=== PATIENT | female | born 1950 | race Caucasian/White ===

== ENCOUNTER 2025-01-19 13:20 | Outpatient (AMB) | payer BC, SELFPAY ==
[2025-01-19 13:29] VITALS: BP 112/70; PULSE 72; O2SAT 99; BMI 23.4
--- NOTE | 2025-01-19 13:29 | A.OFFVIS_ITS ---
Vital Signs 01/19/25 13:29 Height 5 ft 3 in Weight 132 lb BMI 23.4 BP 112/70 Blood Pressure Location Rt brachial Position Sitting Pulse 72 Pulse Source Pulse Oximeter Pulse Oximetry (%) 99 Oxygen Delivery Method Room Air Intake Visit Reasons: ENP: Tremors Intake Note: patient referred by [facility] for tremors. Allergies pioglitazone Allergy (Unknown, Verified 01/19/25 13:32) Unknown acarbose Adverse Reaction (Severe, Verified 01/19/25 13:32) Diarrhea Medication List - Last Reconciled 01/19/25 by Nydia Rouse MD amlodipine mg PO atorvastatin 40 mg PO blood sugar diagnostic (FreeStyle Lite Strips) As directed insulin glargine (Lantus Solostar U-100 Insulin) units subcut insulin lispro (Humalog KwikPen (U-100) Insulin) subcut lancets (Accu-Chek Softclix Lancets) As directed lisinopril 40 mg PO meloxicam 15 mg PO metformin 1,000 mg PO pen needle, diabetic (BD Ultra-Fine Short Pen Needle) As directed HPI Comments Details: Patient was informed and verbally consented to the use of an ambient scribe for clinic note documentation during this visit. The patient is a 74-year-old Right handed female presenting with tremors that started over a year ago. The tremors are primarily in her hands and intermittently extend to her arms and shoulders, exacerbated by cold. These are postural and action tremors, affecting her ability to perform tasks involving fine motor skills like writing and eating certain foods. She reports no difficulty drinking fluids. Concurrent medical issues include lumbar spine osteoarthritis, diabetes mellitus with recent control details unspecified, and essential hypertension currently managed with two medications. Additionally, she underwent gallbladder removal and has experienced a wrist fracture in the past. There is no significant family history of tremors, and the patient does not report any head injuries. She experiences nocturnal numbness and tingling in her feet, a likely diabetes- related symptom. Her lumbar spine osteoarthritis results in pain but not frequent falls, and she uses a walker. [facility], LAT[facility] Medical History Coarse tremors Tremor of both hands Tobacco use disorder Overweight Iron deficiency anemia Increased frequency of urination Hyperlipidemia HTN (hypertension) Eczema Diverticulosis of colon Peripheral neuropathy Retinopathy Type 2 diabetes mellitus Carpal tunnel syndrome Chronic back pain Surgical History Hx of cholecystectomy Hx of colonoscopy H/O esophagogastroduodenoscopy Family History Mother Lung cancer Father CAD (coronary artery disease) Social History Alcohol intake: never Patient Tobacco Use Status: Current everyday Tobacco user Review of Systems Const Details: - Musculoskeletal: Reports difficulties with writing due to tremors. - Neurological: Denies head or leg tremors; reports numbness and tingling in feet at night. - Endocrine: Denies recent symptoms; long-established diabetes. - Musculoskeletal: Reports arthritis in lumbar spine. Physical Exam Vital Signs: Last Vital Signs Pulse 72 01/19/25 13:29 BP 112/70 01/19/25 13:29 Pulse Ox 99 01/19/25 13:29 Oxygen Delivery Method Room Air 01/19/25 13:29 BMI result Body Mass Index 23.4 Const General: cooperative, comfortable and no acute distress Nutritional Appearance: average body habitus Orientation/consciousness: patient oriented x3 Eyes Pupils: Equal, round and reactive pupils present Neuro Other: voice tremors Mild postural and rest tremors juventino UE Moderate action tremors trouble writing Gait - with walker slow stooped antalgic FFm and foot taps mildly decreased General: patient oriented x3, tone normal, moves all extremities and no focal motor deficits Cranial nerves: Yes Facial sensation intact/muscles of mastication intact, Yes Equal, round and reactive pupils present, Yes Bilaterally intact EOM present, Yes Nystagmus not present, Yes Normal facial strength present and Yes Midline tongue present Motor exam (neuro): 5/5 motor strength present throughout and Normal motor muscle tone present throughout Deep tendon reflexes (DTR's): Right triceps reflex intensity grade: 2+, Left triceps reflex intensity grade: 2+, Rt Biceps (C5, C6): 2+, Left biceps reflex intensity grade: 2+, Right brachioradialis reflex intensity grade: 2+, Left brachioradialis reflex intensity grade: 2+, Right patellar reflex intensity grade: 2+ and Left patellar reflex intensity grade: 2+ Coordination: [id number] test normal Psych Other: - Appearance: The patient appears engaged and follows commands properly. - Mood and Affect: Shows no evidence of mood disturbances. Assessment & Plan Assessment & Plan (1) Coarse tremors: Comment: senile tremors Code(s): G25.2 - Other specified forms of tremor Category: Medical Plan - Start propranolol 10 mg twice daily with meals; use plenty of fluids. - Participate in occupational therapy; follow-up on discussing tools for writing. - Monitor symptoms and report any new dizziness. - Ensure continued management of diabetes and hypertension. - Follow up in four months or sooner if symptoms worsen. No evidence of Parkinsons on todays visit Orders: Orders OT Evaluation and Treatment Today G25.2 - Other specified forms of tremor Medications: New propranolol 10 mg PO BID 60 tabs 6RF Coding Level of Care Code New Pt Level 4 (05716) Diagnoses Coarse tremors G25.2
--- OUTSIDE RECORDS SUMMARY | 2025-01-19 16:11 | XMS_ITS | Data Portability ---
Author Organization [place] [facility], CARLOS ROMAN MD Address [address] [place] [id number] Care Team Providers Care Muffler Mechanic Name Role Phone MD LUCIAN, SHIRAZ Primary Care Provider [phone] MD EPSTEIN LEE Referring Provider [phone] Assessment Encounter Date Assessment Date Assessment LastModified by Organization Details LastModified Time 10/22/2021 10/22/2021 Impression and plan: 1. Probable essential tremors. Currently mild. Her handwriting remains legible. She has not been spilling food or drink.. Hold off on treatment. Doubt Parkinson's. Patient given reassurance. 2. History of diabetic peripheral neuropathy. 3. Return to the office in one year to reassess. jancheta Not available 10/22/2021 14:05:58 Plan of Treatment Reminders Order Date Submit Date Provider Last Modified By Organization Details Last Modified Time Details Appointments None record ed. Lab None record ed. Referral None record ed. Procedures None record ed. Surgeries None record ed. Imaging None record ed. Medication Orders None record ed. Patient TargetsNo targets recorded. Patient Instructions Encounter Date Encounter Id Patient Instructions Last Modified By Organization Details Last Modified Time 10/22/2021 [id number] Plan of care coordinated with patient and patient's at the end of visit. The patient and patient's voiced understanding of the above counseling and instructions. Patient and patient's agrees to treatment plan established at this visit. jancheta Not available 10/22/2021 14:06:05 Reason for Referral None Reported. Procedures Surgical History Date Name Laterality Status Provider Name and Address Organization Details Recorded Time Tonsillectomy completed Jose DIEZ - [facility] 10/22/2021 13:44:57 Cataract Surgery completed Jose DIEZ - [facility] 10/22/2021 13:45:03 Colonoscopy completed Jose DIEZ - [facility] 10/22/2021 13:45:09 Imaging Results None recorded. Procedure Notes None recorded. Medical Equipment None Reported. Allergies No known drug allergies Medications Name Sig Start Date Stop Date Status Note LastModified by Organization Details LastModified Time meclizine 12.5 mg tablet active Not Available Not Available No t Available aspirin 81 mg tablet,delayed release Take 1 tablet every day by oral route. active Not Available Not Available No t Available atorvastatin active Not Available Not Available Not Available lisinopril active Not Available Not Av ailable Not Available Slow Fe active Not Available Not Avail able Not Available metformin active Not Available Not Nora ilable Not Available lovastatin active Not Available Not Av ailable Not Available Lantus U-100 Insulin active Not Available Not Available Not Available Vitals None Recorded Social History Question Answer Notes LastModified by Organizat ion Details LastModified Time Tobacco Smoking Status Current Every Day Smoker Jose Woodward [facility], [place] - [facility] 10/22/2021 13:44:47 What Is Your Level Of Alcohol Consumption? None Information not available 10/22/2021 Are You Blind Or Do You Have Difficulty Seeing? No Information not available 10/22/2021 How Much Tobacco Do You Smoke? 1 PPD Information not available 10/22/2021 Do You Use Any Illicit Or Recreational Drugs? No Information not available 10/22/2021 How Many Years Have You Smoked Tobacco? 40 Information not available 10/22/2021 Do You Or Have You Ever Used Any Other Forms Of Tobacco Or Nicotine? No Information not available 10/22/2021 Sex: Unknown Functional Status None recorded. Mental Status None recorded. Family History Relationship Description Onset Age of this Age Resolved Age Notes LastModified by Organization Details LastModified Time Father Heart disease jwicks Not available 2020 13:43:54 Father Diabetes mellitus jancheta Not available 2020 14:07:23 Mother Malignant tumor of lung jwicks Not available 2020 13:44:04 Brother Human immunodefici ency virus infection CANCER jwicks Not available 2020 13:44:17 Brother Malignant tumor of lung jancheta Not available 2020 14:07:54 Brother Viral hepatitis C jancheta Not available 05/2021 14:08:19 Brother Hemophilia jancheta Not availa ble 10/22/2021 14:08:28 Medical History Condition Response Cataracts Y Gynecological HistoryNo gynecological history recorded. Obstetrics History GPAL:G 0 P 0 0 0 0 Past Encounters Encounter ID Performer Location Encounter Start Date Encounter Closed Date Diagnosis/Indication Diagnosis SNOMED-CT Code Diagnosis ICD10 Code Diagnosis Note [id number] Carlos Roman MD [facility] [address] [place] [address],[place] [phone] 10/22/2021 13:24:54 10/22/2021 14:02:08 Essential tremor 672845688 G25.0 Diabetic p eripheral neuropathy 552929822 E11.40 Health Concerns Section Related Observation LastModified by Organization Detai ls LastModified Time None Recorded Concern Status LastModified by Organization Details LastModified Time None Recorded Advance Directives Directive None Recorded Payers Encounter Date Sequence Insurance Name Policy Number Policy Espino Covered Member ID Espino Member ID Guarantor Name 10/22/2021 1 [facility] (MEDICARE REPLACEMENT/A DVANTAGE - PPO) [id number] Annette Marcos [id number] Annette Marcos Notes Date Note Type Note Provider Name and Address Organization Details Recorded Time 10/22/2021 text/html The patient is a 70-year-old female who has been complaining of tremors involving her hands bilaterally for the past couple of years. She feels it as affecting her handwriting. Her handwriting is still legible. She denies spilling food or drink during meals. She denies any shuffling of her feet. She denies any drooling. She denies any trouble swallowing. She denies any history of thyroid disease. She denies any family history of tremors. The patient is wondering whether she has Parkinson's. She does have a history of peripheral neuropathy and diabetes. Neurological consultation is requested by Dr. Epstein for further evaluation of resting tremors. Carlos Roman MD [address] [facility],[address] [place], [address], [place] - [facility] 10/22/2021 14:12:48 OBGyn Episode No OBEpisode recorded.
--- OUTSIDE RECORDS SUMMARY | 2025-01-19 16:11 | XMS_ITS | Continuity of Care Document ---
Author Organization [facility] Address [address] [place] [address]- Care Team Providers Care Spa Manager/Esthetician Name Role Phone Bronwyn Camejo Primary Care P isidoro [place] [facility] [place] 11[place]28[place]24 - 12/28/24 [facility] [address] [place] [id number] Encounter Type: Triage Allergies, Adverse Reactions, Alerts Substance Criticality Severity Reaction Reaction Severity Status acarbose Diarrhea Active pioglitazone Active Immunizations Given and Recorded Vaccine Date Status Refusal Reason influenza virus vaccine, inactivated 09/19/24 Az rded influenza virus vaccine, inactivated 10/03/23 Az rded influenza virus vaccine, inactivated 1 08/27/16 Gi latosha influenza virus vaccine, inactivated 09/13/14 Give n SARS-CoV-2(COVID-19)mRNA-LNP vac([id number]) 09/19/24 Recorded SARS-CoV-2(COVID-19)mRNA-LNP vac([id number]) 09/10/23 Recorded Influenza Virus Vaccine (oldterm) 08/28/19 Recorde d pneumococcal 23-valent vaccine 2 12/23/16 Given pneumococcal 13-valent vaccine 3, 4 10/04/15 Given Zostavax (oldterm) 5 01/21/15 Recorded tetanus/diphtheria/pertussis, acel(Tdap) 01/28/08 Given Pneumococcal Vaccine (oldterm) 11/21/97 Given diphtheria-tetanus toxoids (DT) 11/21/97 Given 1Result Comment: Dr grey Vanegas 2Admin Note: [facility] 3Result Comment: Dr grey Vanegas 4Admin Note: [facility] 5Location History: [place] / Pharmacy Medications acetaminophen 325 mg oral tablet 650 mg, By Mouth, Every 6 hours, Refills 0, Maintenance, 10/07/24 11:22:00 AM EST, Partial fill upon patient request if the prescription is for a schedule II opioid drug. Start Date: 10/07/24 Status: Ordered Repeat number: 1 amLODIPine 10 mg oral tablet 1 tablet, By Mouth, Daily at supper, # 90 tablet, 1 Refills, Maintenance, 07/01/24 11:34:00 AM EDT, [facility] #[id number], 161.4, cm, 07/01/24 10:50:00 EDT, Height Start Date: 07/01/24 Status: Ordered Quantity: 90.0 Unit: tablet Repeat number: 2 atorvastatin 40 mg oral tablet 1 tablet, By Mouth, Daily, # 90 tablet, 1 Refills, Maintenance, 11/23/24 9:55:00 AM EST, [id number], 157, cm, 10/12/24 13:33:00 EST, Height, 64, kg, 10/03/24 12:46:00 EST, Dry Weight Start Date: 11/23/24 Status: Ordered Quantity: 90.0 Unit: tablet Repeat number: 1 Dexcom CGM Dexcom CGM, See Instructions, # 1 each, Refills 0, Tot. Refills 0, Maintenance, Dexcom CGM, :53:00 AM EDT, Supply, 161.4, cm, 04/21/24 10:51:00 EDT, Height Start Date: 05/05/24 Status: Ordered Quantity: 1.0 Unit: each Repeat number: 1 Freestyle Lancets See Instructions, # 100 pack/packet, Refills 5, Tot. Refills 5, Maintenance, Used to test BS TID DX: E11.9, 05/26/24 12:22:00 PM EDT, Supply, 161.4, cm, 04/21/24 10:51:00 EDT, Height Start Date: 05/26/24 Status: Ordered Quantity: 100.0 Unit: pack/packet Repeat number: 6 Freestyle Lite Lancets See Instructions, # 600 each, Refills 2, Tot. Refills 2, Maintenance, DX: E11.9 test blood sugars 3times daily, 12/15/23 9:30:00 AM EST, Supply, 161.4, cm, 06/19/23 9:52:00 EDT, Height Start Date: 12/15/23 Status: Ordered Quantity: 600.0 Unit: each Repeat number: 3 Freestyle Lite Monitor See Instructions, # 1 each, Maintenance, Used to test BS TID E11.9, 05/26/24 12:25:00 PM EDT, Supply, 161.4, cm, 04/21/24 10:51:00 EDT, Height Start Date: 05/26/24 Status: Ordered Quantity: 1.0 Unit: each Repeat number: 1 Freestyle Lite Test Strips See Instructions, # 200 each, Refills 5, Tot. Refills 5, Maintenance, Used to test BS TID use as directed for Type 1 Diabetes Mellitus, 05/26/24 12:22:00 PM EDT, Supply, 161.4, cm, 04/21/24 10:51:00 EDT, Height Start Date: 05/26/24 Stop Date: 11/22/24 Status: Ordered Quantity: 200.0 Unit: each Repeat number: 6 Freestyle Lite Test Strips Freestyle Lite Test Strips, See Instructions, # 200 each, Refills 11, Tot. Refills 11, Maintenance,Test blood sugars three times daily, 04/20/24 9:44:00 AM EDT, Supply, 161.4, cm, 03/17/24 10:45:00 EDT, Height Start Date: 04/20/24 Status: Ordered Quantity: 200.0 Unit: each Repeat number: 12 Indication: Type 2 diabetes mellitus without complications Golytely - oral powder for reconstitution 240 mL, By Mouth, Every 10 minutes, see prep instructions, # 1 each, 0 Refills, Maintenance, 07/07/24 12:13:00 PM EDT, REC Powder, [facility] #[id number], Partial fill upon patient request if the prescription is for a schedule II opioid drug., 240 mL By Mouth Every 10 minutes,Instr:see prep instructions, 161.4, cm, 06/06/24 11:21:00 EDT, Height Start Date: 07/07/24 Status: Ordered Quantity: 1.0 Unit: each Repeat number: 1 Insulin Lispro KwikPen 100 units/mL injectable solution 4-10 units, Subcutaneous Injection, 3 times a day before meals, << Sliding Scale Comments >> 100 - 149 4 units Call if less than 70 150 - 199 5 units 200 - 249 6 units 250 - 299 7 units 300 - 349 8 units 350 - 399 9 units 400 - 449 10 units Call if greater than 400 << Sliding Scale Comments >>, # 15 mL, 0 Refills, Maintenance, 10/10/24 10:00:00 AM EST, [id number], Partial fill upon patient request if the prescription is for a schedule II opioid drug., 157, cm, 10/09/24 15:17:00 EST, Height, 64, kg, 10/03/24 12:46:00 EST, Dry Weight Start Date: 10/10/24 Status: Ordered Quantity: 15.0 Unit: mL Repeat number: 1 Latrell Solostar Pen 100 units/mL subcutaneous solution = 16 units, Subcutaneous Injection, Daily, # 15 mL, 0 Refills, Maintenance, 10/10/24 10:00:00 AM EST, Solution, [facility] #[id number], Partial fill upon patient request if the prescription is for a schedule II opioid drug., 157, cm, 10/09/24 15:17:00 EST, Height, 64, kg, 10/03/24 12:46:00 EST, Dry Weight Start Date: 10/10/24 Status: Ordered Quantity: 15.0 Unit: mL Repeat number: 1 lisinopril 40 mg oral tablet 1 tablet = 40 mg, By Mouth, Daily at supper, # 90 tablet, 1 Refills, Maintenance, 07/01/24 11:34:00 AM EDT, Tablet, [facility] #[id number], Partial fill upon patient request if the prescription is for a schedule II opioid drug., 161.4, cm, 07/01/24 10:50:00 EDT, Height Start Date: 07/01/24 Status: Ordered Quantity: 90.0 Unit: tablet Repeat number: 2 meloxicam 15 mg oral tablet 1 tablet, By Mouth, Daily, # 90 tablet, 0 Refills, Maintenance, 07/28/24 6:28:00 AM EDT, [id number], 161.4, cm, 07/01/24 10:50:00 EDT, Height Start Date: 07/28/24 Status: Ordered Quantity: 90.0 Unit: tablet Repeat number: 1 metFORMIN 1000 mg oral tablet 1 tablet, By Mouth, 2 times a day, # 180 tablet, 1 Refills, Maintenance, 08/01/24 2:07:00 PM EDT, [id number], 161.4, cm, 07/01/24 10:50:00 EDT, Height Start Date: 08/01/24 Status: Ordered Quantity: 180.0 Unit: tablet Repeat number: 1 Pen Mims, 31 G x 8 mm BD Ultra Fine III See Instructions, # 300 each, Refills 2, Tot. Refills 2, Maintenance, use as once daily for Type 2 Diabetes Mellitus, 06/11/24 4:04:00 PM EDT, Supply, 161.4, cm, 06/19/23 9:52:00 EDT, Height Start Date: 06/11/24 Stop Date: 03/08/25 Status: Ordered Quantity: 300.0 Unit: each Repeat number: 3 Indication: Type 2 diabetes mellitus without complications Pen Mims, 31 G x 8 mm BD Ultra Fine III See Instructions, # 300 each, Refills 2, Tot. Refills 2, Maintenance, use as once daily for Type 2 Diabetes Mellitus, 10/10/24 9:58:00 AM EST, Supply, 157, cm, 10/09/24 15:17:00 EST, Height, 64, kg, 10/03/24 12:46:00 EST, Dry Weight Start Date: 10/10/24 Stop Date: 07/07/25 Status: Ordered Quantity: 300.0 Unit: each Repeat number: 3 psyllium 2.4 g/3.7 g oral powder for reconstitution = 2.4 Gm, By Mouth, Daily, PRN as needed for constipation, dissolve in 8 oz of fluid, # 30 pack/packet, 0 Refills, Maintenance, 06/06/24 12:07:00 PM EDT, REC Powder, [facility] #[id number], Partial fill upon patient request if the prescription is for a schedule II opioid drug., 161.4, cm, 06/06/24 11:21:00 EDT, Height Start Date: 06/06/24 Status: Ordered Quantity: 30.0 Unit: pack/packet Repeat number: 1 Problem List Condition Confirmation Course Effective Dates Status H ealth Status Informant Back pain Confirmed Active Carpal Tunnel Syndrome Confirmed Active Diabetic peripheral neuropathy Confirmed Active Diverticulosis of colon Confirmed 12/29/07 Active Eczema Confirmed Active Tremor of both hands Confirmed Active HTN (hypertension) Confirmed Active Hyperlipidemia NOS Confirmed 09/07/08 Active Increased frequency of urination Confirmed Active Iron deficiency anemia Confirmed 08/09/17 Active Diabetic Background Retinopathy 362.01 Confirmed Active Overweight Confirmed Active TOBACCO USE DISORDER Confirmed 03/19/09 Active Diabetes mellitus type II, uncontrolled Confirmed 02/1987 Active Social History Social History Type Response Smoking Status 10 or more cigarette s (1/2 pack or more)/day in last 30 days; Interested in cessation: No; Tobacco use times per day: 40 years; entered on: 06/19/23 Sex Sex Representation Female (finding) Patient Care team information Care Team Personnel Name: Leanne Ybarra RN Position: S RN Member Role: Primary Care Nurse Name: Efrain Don RN Position: S RN Member Role: Primary Care Nurse Name: Jazmyn Jose RN Position: S RN Member Role: Primary Care Nurse Name: Delilah Pérez RN Position: S RN Member Role: Primary Care Nurse Name: Ewa Cheney RN Position: S RN Member Role: Primary Care Nurse Name: Bronwyn Camejo Position: [facility] Associate Professional Member Role: PCP Address: [address] [place] [address]. [address] [place], [place] [address] Telecom: Name: Es Hernadnez RN Position: S RN Member Role: Primary Care Nurse Name: Amelie Lamar RN Position: S RN Member Role: Primary Care Nurse Name: Luci Kumari RN Position: S RN Member Role: Primary Care Nurse Name: Lili Mace RN Position: S RN Member Role: Primary Care Nurse Care Team Related Persons Name: NIEVESRANDA Insurance Providers Guarantor name: RANJITH PICKETT [facility] Information #: 1 Payer: NAIMA Member Number: NA Policy Number: NA Group Number: NA
--- OUTSIDE RECORDS SUMMARY | 2025-01-19 16:11 | XMS_ITS | Continuity of Care Document ---
Author Organization [facility] Address [address] [place] [address] [address] [place] [address]- Care Team Providers Care Cookie Mixer Helper Name Role Phone Nita CHUNG, Bronwyn Rios Primary Care P isidoro En[place] [facility] [place] Date(s): 11/23/24 - 12/23/[address] [place] [address]- Attending Physician: Admtr, Ar8 Admitting Physician: Admtr, Ar8 Referring Physician: Admtr, Ar8 Encounter Type: Triage Allergies, Adverse Reactions, Alerts Substance Criticality Severity Reaction Reaction Severity Status acarbose Diarrhea Active pioglitazone Active Immunizations Given and Recorded Vaccine Date Status Refusal Reason influenza virus vaccine, inactivated 09/19/24 Az rded influenza virus vaccine, inactivated 10/03/23 Az rded influenza virus vaccine, inactivated 1 08/27/16 Gi latosha influenza virus vaccine, inactivated 09/13/14 Give n SARS-CoV-2(COVID-19)mRNA-LNP vac([id number]) 09/19/24 Recorded SARS-CoV-2(COVID-19)mRNA-LNP vac([id number]) 09/10/23 Recorded Influenza Virus Vaccine (oldterm) 08/28/19 Recorde d pneumococcal 23-valent vaccine 2 12/23/16 Given pneumococcal 13-valent vaccine 3, 4 10/04/15 Given Zostavax (oldterm) 5 01/21/15 Recorded tetanus/diphtheria/pertussis, acel(Tdap) 01/28/08 Given Pneumococcal Vaccine (oldterm) 11/21/97 Given diphtheria-tetanus toxoids (DT) 11/21/97 Given 1Result Comment: Dr grey Vanegas 2Admin Note: [facility] 3Result Comment: Dr grey Vanegas 4Admin Note: [facility] 5Location History: [place] / Pharmacy Medications acetaminophen [...] 1 Refills, Maintenance, 07/01/24 11:34:00 AM EDT, [facility]/pharmacy #[id number], 161.4, cm, 07/01/24 10:50:00 EDT, Height Start Date: 07/01/24 Status: Ordered Quantity: 90.0 Unit: tablet Repeat number: 2 atorvastatin 40 mg oral tablet 1 tablet, By Mouth, Daily, # 90 tablet, 1 Refills, Maintenance, 11/23/24 9:55:00 AM EST, [facility], 157, cm, 10/12/24 13:33:00 EST, Height, 64, [...] Maintenance, 07/07/24 12:13:00 PM EDT, REC Powder, [facility]/pharmacy #[id number], Partial fill upon patient request if the [...] Quantity: 15.0 Unit: mL Repeat number: 1 Lantus Solostar Pen 100 units/mL subcutaneous solution = 16 units, Subcutaneous Injection, Daily, # 15 mL, 0 Refills, Maintenance, 10/10/24 10:00:00 AM EST, Solution, [id number], Partial fill upon patient request [...] Refills, Maintenance, 07/01/24 11:34:00 AM EDT, Tablet, [id number], Partial fill upon patient request if the prescription is for a schedule II opioid drug., 161.4, cm, 07/01/24 10:50:00 EDT, Height Start Date: 07/01/24 Status: Ordered Quantity: 90.0 Unit: tablet Repeat number: 2 meloxicam 15 mg oral tablet 1 tablet, By Mouth, Daily, # 90 tablet, 0 Refills, Maintenance, 07/28/24 6:28:00 AM EDT, [facility], 161.4, cm, 07/01/24 10:50:00 EDT, Height Start Date: 07/28/24 Status: Ordered Quantity: 90.0 Unit: tablet Repeat number: 1 metFORMIN 1000 mg oral tablet 1 tablet, By Mouth, 2 times a day, # 180 tablet, 1 Refills, Maintenance, 08/01/24 2:07:00 PM EDT, [facility], 161.4, cm, 07/01/24 10:50:00 EDT, Height Start Date: 08/01/24 Status: Ordered Quantity: 180.0 Unit: tablet Repeat number: 1 Pen [place], 31 G x 8 mm BD Ultra Fine III See Instructions, # 300 each, Refills 2, Tot. Refills 2, Maintenance, use as once daily for Type 2 Diabetes Mellitus, 06/11/24 4:04:00 PM EDT, Supply, 161.4, cm, 06/19/23 9:52:00 EDT, Height Start Date: 06/11/24 Stop Date: 03/08/25 Status: Ordered Quantity: 300.0 Unit: each Repeat number: 3 Indication: Type 2 diabetes mellitus without complications Pen [place], 31 G x 8 mm BD Ultra [...] Maintenance, 06/06/24 12:07:00 PM EDT, REC Powder, [facility]/pharmacy #[id number], Partial fill upon patient request if the [...] Team Personnel Name: Leanne Ybarra RN Position: [facility] RN Member Role: Primary Care Nurse Name: Efrain Don RN Position: [facility] RN Member Role: Primary Care Nurse Name: Jazmyn Jose RN Position: S RN Member Role: Primary Care Nurse Name: Delilah Pérez RN Position: [facility] RN Member Role: Primary Care Nurse Name: Ewa Cheney RN Position: [facility] RN Member Role: Primary Care Nurse Name: Bronwyn Camejo Position: [facility] Associate Professional Member Role: PCP Address: [address] [place] [address]. [address] [place] [address]- Telecom: Name: Es Hernandez RN Position: S RN Member Role: Primary Care Nurse Name: Amelie Lamar RN Position: [facility] RN Member Role: Primary Care Nurse Name: Luci Kumari RN Position: [facility] RN Member Role: Primary Care Nurse Name: Lili Mace RN Position: [facility] RN Member Role: Primary Care Nurse Care Team Related Persons Name: RANDA PICKETT Insurance Providers Guarantor name: [facility] Information #: 1 Payer: NA Member Number: NA Policy Number: NA Group Number: NA
--- OUTSIDE RECORDS SUMMARY | 2025-01-19 16:11 | XMS_ITS | Continuity of Care Document ---
Author Organization [facility] Adult Address [address] [place] [address]- Care Team Providers Care Storekeeper Engineering Name Role Phone Bronwyn Camejo Primary Care [facility]oro [id number] Date([facility] 12/12/24 - 01/11/25 [facility] [address] [place] [id number] Encounter Type: Triage Allergies, Adverse Reactions, Alerts Substance Criticality Severity Reaction Reaction Severity Status acarbose Diarrhea Active pioglitazone Active Immunizations Given and Recorded Vaccine Date Status Refusal Reason influenza virus vaccine, inactivated 09/19/24 Az rded influenza virus vaccine, inactivated 10/03/23 Az rded influenza virus vaccine, inactivated 1 08/27/16 Gi latosha influenza virus vaccine, inactivated 09/13/14 Give n SARS-CoV-2(COVID-19)mRNA-LNP vac([id number]) 09/19/24 Recorded SARS-CoV-2(COVID-19)mRNA-LNP vac([id number]) 09/10/23 Recorded Influenza Virus Vaccine (oldterm) 08/28/19 Recorde d pneumococcal 23-valent vaccine 2 12/23/16 Given pneumococcal 13-valent vaccine 3, 4 10/04/15 Given Zostavax (oldterm) 5 01/21/15 Recorded tetanus/diphtheria/pertussis, acel(Tdap) 01/28/08 Given Pneumococcal Vaccine (oldterm) 11/21/97 Given diphtheria-tetanus toxoids (DT) 11/21/97 Given 1Result Comment: Dr grey Vanegas 2Admin Note: [facility] 3Result Comment: Dr grey Vanegas 4Admin Note: [facility] 5Location History: [place] / Pharmacy Medications acetaminophen 325 mg oral [...] 1 Refills, Maintenance, 07/01/24 11:34:00 AM EDT, [facility]/pharmacy #0859, 161.4, cm, 07/01/24 10:50:00 EDT, Height Start Date: 07/01/24 Status: Ordered Quantity: 90.0 Unit: tablet Repeat number: 2 atorvastatin 40 mg oral tablet 1 tablet, By Mouth, Daily, # 90 tablet, 1 Refills, Maintenance, 11/23/24 9:55:00 AM EST, [facility], 157, cm, 10/12/24 13:33:00 EST, Height, 64, [...] Maintenance, 07/07/24 12:13:00 PM EDT, REC Powder, [facility]/pharmacy #[id number], Partial fill upon patient request if the [...] 0 Refills, Maintenance, 10/10/24 10:00:00 AM EST, [facility]/pharmacy #0859, Partial fill upon patient request if the prescription is for a schedule II opioid drug., 157, cm, 10/09/24 15:17:00 EST, Height, 64, kg, 10/03/24 12:46:00 EST, Dry Weight Start Date: 10/10/24 Status: Ordered Quantity: 15.0 Unit: mL Repeat number: 1 Lant Solostar Pen 100 units/mL subcutaneous solution = 16 units, Subcutaneous Injection, Daily, # 15 mL, 0 Refills, Maintenance, 10/10/24 10:00:00 AM EST, Solution, [facility]/pharmacy #0859, Partial fill upon patient request if [...] Refills, Maintenance, 07/01/24 11:34:00 AM EDT, Tablet, [facility]/pharmacy #0859, Partial fill upon patient request if the prescription is for a schedule II opioid drug., 161.4, cm, 07/01/24 10:50:00 EDT, Height Start Date: 07/01/24 Status: Ordered Quantity: 90.0 Unit: tablet Repeat number: 2 meloxicam 15 mg oral tablet 1 tablet, By Mouth, Daily, # 90 tablet, 0 Refills, Maintenance, 07/28/24 6:28:00 AM EDT, [facility], 161.4, cm, 07/01/24 10:50:00 EDT, Height Start Date: 07/28/24 Status: Ordered Quantity: 90.0 Unit: tablet Repeat number: 1 metFORMIN 1000 mg oral tablet 1 tablet, By Mouth, 2 times a day, # 180 tablet, 1 Refills, Maintenance, 08/01/24 2:07:00 PM EDT, [facility], 161.4, cm, 07/01/24 10:50:00 EDT, Height Start Date: 08/01/24 Status: Ordered Quantity: 180.0 Unit: tablet Repeat number: 1 Pen [place], 31 G x 8 mm BD Ultra Fine III See Instructions, # 300 each, Refills 2, Tot. Refills 2, Maintenance, use as once daily for Type 2 Diabetes Mellitus, 06/11/24 4:04:00 PM EDT, Supply, 161.4, cm, 06/19/23 9:52:00 EDT, Height Start Date: 06/11/24 Stop Date: 03/08/25 Status: Ordered Quantity: 300.0 Unit: each Repeat number: 3 Indication: Type 2 diabetes mellitus without complications Pen [place], 31 G x 8 mm BD Ultra [...] Maintenance, 06/06/24 12:07:00 PM EDT, REC Powder, [facility]/pharmacy #[id number], Partial fill upon patient request if the [...] Primary Care Nurse Name: Bronwyn Camejo Position: [facility] PCO Associate Professional Member Role: PCP Address: [address] [place] [address]. [address] [place], [place] [address] Telecom: Name: Es Hernandez RN Position: S RN Member Role: Primary Care Nurse Name: Amelie Lamar RN Position: S RN Member Role: Primary Care Nurse Name: Luci Kumari RN Position: S RN Member Role: Primary Care Nurse Name: Lili Mace RN Position: S RN Member Role: Primary Care Nurse Care Team Related Persons Name: RANDA PICKETT Insurance Providers Guarantor name: RANJITH PICKETT [facility] Information #: 1 Payer: NAIMA Member Number: NAIMA Policy Number: NA Group Number: NA
--- OUTSIDE RECORDS SUMMARY | 2025-01-19 16:11 | XMS_ITS | Continuity of Care Document ---
Author Organization [facility] Adult Address [address] [place] [address]- Care Team Providers Care Orthopedic Physical Therapist Name Role Phone Bronwyn Camejo Primary Care P isidoro Encounter [facility] [place] Date(s): 12/07/24 - 01/06/25 [facility] Adult [address] [place] [address]- Encounter Type: Triage Allergies, Adverse Reactions, Alerts Substance Criticality Severity Reaction Reaction Severity Status acarbose Diarrhea Active pioglitazone Active Immunizations Given and Recorded Vaccine Date Status Refusal Reason influenza virus vaccine, inactivated 09/19/24 Az rded influenza virus vaccine, inactivated 10/03/23 Az rded influenza virus vaccine, inactivated 1 08/27/16 Gi latosha influenza virus vaccine, inactivated 09/13/14 Give n SARS-CoV-2(COVID-19)mRNA-LNP vac([id number]) 09/19/24 Recorded SARS-CoV-2(COVID-19)mRNA-LNP vac([id number]) 09/10/23 Recorded Influenza Virus Vaccine (oldterm) 08/28/19 Recorde d pneumococcal 23-valent vaccine 2 12/23/16 Given pneumococcal 13-valent vaccine 3, 4 10/04/15 Given Zostavax (oldterm) 5 01/21/15 Recorded tetanus/diphtheria/pertussis, acel(Tdap) 01/28/08 Given Pneumococcal Vaccine (oldterm) 11/21/97 Given diphtheria-tetanus toxoids (DT) 11/21/97 Given 1Result Comment: Dr grey Vanegas 2Admin Note: [facility] 3Result Comment: Dr grey Vanegas 4Admin Note: [facility] 5Location History: [place] / Pharmacy Medications acetaminophen 325 mg oral [...] 1 Refills, Maintenance, 07/01/24 11:34:00 AM EDT, [facility]/pharmacy #0859, 161.4, cm, 07/01/24 10:50:00 EDT, Height Start Date: 07/01/24 Status: Ordered Quantity: 90.0 Unit: tablet Repeat number: 2 atorvastatin 40 mg oral tablet 1 tablet, By Mouth, Daily, # 90 tablet, 1 Refills, Maintenance, 11/23/24 9:55:00 AM EST, [facility], 157, cm, 10/12/24 13:33:00 EST, Height, 64, [...] Maintenance, 07/07/24 12:13:00 PM EDT, REC Powder, [facility]/pharmacy #[id number], Partial fill upon patient request if the [...] 0 Refills, Maintenance, 10/10/24 10:00:00 AM EST, [facility]/pharmacy #0859, Partial fill upon patient request if [...] Refills, Maintenance, 10/10/24 10:00:00 AM EST, Solution, [facility]/pharmacy #0859, Partial fill upon patient request if [...] Refills, Maintenance, 07/01/24 11:34:00 AM EDT, Tablet, [facility]/pharmacy #0859, Partial fill upon patient request if the prescription is for a schedule II opioid drug., 161.4, cm, 07/01/24 10:50:00 EDT, Height Start Date: 07/01/24 Status: Ordered Quantity: 90.0 Unit: tablet Repeat number: 2 meloxicam 15 mg oral tablet 1 tablet, By Mouth, Daily, # 90 tablet, 0 Refills, Maintenance, 07/28/24 6:28:00 AM EDT, [facility], 161.4, cm, 07/01/24 10:50:00 EDT, Height Start Date: 07/28/24 Status: Ordered Quantity: 90.0 Unit: tablet Repeat number: 1 metFORMIN 1000 mg oral tablet 1 tablet, By Mouth, 2 times a day, # 180 tablet, 1 Refills, Maintenance, 08/01/24 2:07:00 PM EDT, [facility], 161.4, cm, 07/01/24 10:50:00 EDT, Height Start Date: 08/01/24 Status: Ordered Quantity: 180.0 Unit: tablet Repeat number: 1 Pen [place], 31 G x 8 mm BD Ultra Fine III See Instructions, # 300 each, Refills 2, Tot. Refills 2, Maintenance, use as once daily for Type 2 Diabetes Mellitus, 06/11/24 4:04:00 PM EDT, Supply, 161.4, cm, 06/19/23 9:52:00 EDT, Height Start Date: 06/11/24 Stop Date: 03/08/25 Status: Ordered Quantity: 300.0 Unit: each Repeat number: 3 Indication: Type 2 diabetes mellitus without complications Pen [place], 31 G x 8 mm BD Ultra [...] Maintenance, 06/06/24 12:07:00 PM EDT, REC Powder, [facility]/pharmacy #[id number], Partial fill upon patient request if the [...] Primary Care Nurse Name: Bronwyn Camejo Position: [facility] Associate Professional Member Role: PCP Address: [address] [place] [address]. [address] [place], [place] [address] Telecom: Name: Es Hernandez RN [...] PICKETT Insurance Providers Guarantor name: RANJITH PICKETT [facility] Information #: 1 Payer: NAIMA Member Number: NAIMA Policy Number: NA Group Number: NA
--- OUTSIDE RECORDS SUMMARY | 2025-01-19 16:12 | XMS_ITS | Continuity of Care Document ---
Author Organization [facility] Adult Address [address] [place] [address]- Care Team Providers Care Flight Operations Dispatch Clerk Name Role Phone Bronwyn Camejo Primary [facility]oro [id number] [address] [place] [id number]- Encounter Type: Triage Allergies, Adverse Reactions, Alerts Substance Criticality Severity Reaction Reaction Severity Status acarbose Diarrhea Active pioglitazone Active Immunizations Given and Recorded Vaccine Date Status Refusal Reason influenza virus vaccine, inactivated 09/19/24 Az rded influenza virus vaccine, inactivated 10/03/23 Az rded influenza virus vaccine, inactivated 1 08/27/16 Gi latosha influenza virus vaccine, inactivated 09/13/14 Give n SARS-CoV-2(COVID-19)mRNA-LNP vac([id number]) 09/19/24 Recorded SARS-CoV-2(COVID-19)mRNA-LNP vac([id number]) 09/10/23 Recorded Influenza Virus Vaccine (oldterm) 08/28/19 Recorde d pneumococcal 23-valent vaccine 2 12/23/16 Given pneumococcal 13-valent vaccine 3, 4 10/04/15 Given Zostavax (oldterm) 5 01/21/15 Recorded tetanus/diphtheria/pertussis, acel(Tdap) 01/28/08 Given Pneumococcal Vaccine (oldterm) 11/21/97 Given diphtheria-tetanus toxoids (DT) 11/21/97 Given 1Result Comment: Dr grey Vanegas 2Admin Note: [facility] 3Result Comment: Dr grey Vanegas 4Admin Note: [facility] 5Location History: [place] / Pharmacy Medications acetaminophen 325 mg oral [...] 1 Refills, Maintenance, 07/01/24 11:34:00 AM EDT, [facility]/pharmacy #0859, 161.4, cm, 07/01/24 10:50:00 EDT, Height Start Date: 07/01/24 Status: Ordered Quantity: 90.0 Unit: tablet Repeat number: 2 atorvastatin 40 mg oral tablet 1 tablet, By Mouth, Daily, # 90 tablet, 1 Refills, Maintenance, 11/23/24 9:55:00 AM EST, [facility], 157, cm, 10/12/24 13:33:00 EST, Height, 64, [...] Maintenance, 07/07/24 12:13:00 PM EDT, REC Powder, [facility]/pharmacy #[id number], Partial fill upon patient request if the [...] 0 Refills, Maintenance, 10/10/24 10:00:00 AM EST, [facility]/pharmacy #0859, Partial fill upon patient request if [...] Refills, Maintenance, 10/10/24 10:00:00 AM EST, Solution, [facility]/pharmacy #0859, Partial fill upon patient request if [...] Refills, Maintenance, 07/01/24 11:34:00 AM EDT, Tablet, [facility]/pharmacy #0859, Partial fill upon patient request if the prescription is for a schedule II opioid drug., 161.4, cm, 07/01/24 10:50:00 EDT, Height Start Date: 07/01/24 Status: Ordered Quantity: 90.0 Unit: tablet Repeat number: 2 meloxicam 15 mg oral tablet 1 tablet, By Mouth, Daily, # 90 tablet, 0 Refills, Maintenance, 07/28/24 6:28:00 AM EDT, [facility], 161.4, cm, 07/01/24 10:50:00 EDT, Height Start Date: 07/28/24 Status: Ordered Quantity: 90.0 Unit: tablet Repeat number: 1 metFORMIN 1000 mg oral tablet 1 tablet, By Mouth, 2 times a day, # 180 tablet, 1 Refills, Maintenance, 08/01/24 2:07:00 PM EDT, [facility], 161.4, cm, 07/01/24 10:50:00 EDT, Height Start Date: 08/01/24 Status: Ordered Quantity: 180.0 Unit: tablet Repeat number: 1 Pen [place], 31 G x 8 mm BD Ultra Fine III See Instructions, # 300 each, Refills 2, Tot. Refills 2, Maintenance, use as once daily for Type 2 Diabetes Mellitus, 06/11/24 4:04:00 PM EDT, Supply, 161.4, cm, 06/19/23 9:52:00 EDT, Height Start Date: 06/11/24 Stop Date: 03/08/25 Status: Ordered Quantity: 300.0 Unit: each Repeat number: 3 Indication: Type 2 diabetes mellitus without complications Pen [place], 31 G x 8 mm BD Ultra [...] Maintenance, 06/06/24 12:07:00 PM EDT, REC Powder, [facility]/pharmacy #[id number], Partial fill upon patient request if the [...] Primary Care Nurse Name: Bronwyn Camejo Position: [facility] Associate Professional Member Role: PCP Address: [address] [place] [address]. [address] [place], [place] [address] Telecom: Name: Es Hernandez RN Position: S RN Member Role: Primary Care Nurse Name: Amelie Lamar RN Position: S RN Member Role: Primary Care Nurse Name: Luci Kumari RN Position: S RN Member Role: Primary Care Nurse Name: Lili Mace RN Position: S RN Member Role: Primary Care Nurse Care Team Related Persons Name: RANDA PICKETT Insurance Providers Guarantor name: RANJITH PICKETT [facility] Information #: 1 Payer: NAIMA Member Number: NAIMA Policy Number: NA Group Number: NA
--- OUTSIDE RECORDS SUMMARY | 2025-01-19 16:12 | XMS_ITS | Data Portability ---
Author Organization [place] - [facility], 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 Plan of Treatment Reminders Order Date Submit Date Provider Last Modified By Organization Details Last Modified Time Details Appointments None recorded. Lab CBC 2021 023 [facility], [address], [place], [address], 3 15:37:52 HbA1c (hemoglobi n A1c), blood 2021 022 [facility], [address], [place], [address], 2 05:56:45 urinalysis , dipstick 2021 022 In-Office Order, Internal Use Only DO Not Attach Compendium DO Not Attach Compendium, Do Not Delete/merge, [id number] 2 10:32:06 culture, urine 2021 022 [facility], [address], [place], [address], 2 05:11:07 iron + TIBC + ferritin, serum 042021 [facility], [address], [place], [address], 05:56:43 CBC 2021 [facility], [address], [place], [address], 23:52:50 lipid panel, serum 2021 [facility], [address], [place], [address], 05:56:43 CMP, serum or plasma 2021 [facility], [address], [place], [address], 05:56:44 Referral None recorded. Procedures None recorded. Surgeries None recorded. Imaging None recorded. Medication Orders meclizine 25 mg tablet [address] [facility], [address] [place], [address], 10:32:07 Patient TargetsNo targets recorded. Patient Instructions Encounter Date Encounter Id Patient Instructions Last Modified By Organization Details Last Modified Time 03/04/2022 [id number] starting a weigh t loss plan: care instructions Not available 03/04/2022 10:32:06 anemia: care instructions Not available 03/04/2022 10:32:06 high cholesterol : care instructions Not available 03/04/2022 10:32:06 10/20/2022 [id number] influenza (flu) vaccine: care instructions Not available 10/20/2022 14:02:00 Report new or worsening symptoms. Go to the ER if you are experiencing any distress. Not available 10/20/2022 13:55:24 Reason for Referral None Reported. Results Created Date Observation Date Name Description Value Unit Range Abnormal Flag Note LastModifiedBy Organization Detail LastModifiedTime 02/26/20 22 02/26/2022 TSH TSH 1.87 mIU/L 0.40-4 .50 normal Not Available [facility] [place] [facility] [address], [place], [address], 02/26/2022 10:08:15 02/26/20 22 02/26/2022 ALBUM IN, RANDO M URINE W/CRE ATINI NE creatinine, random urine 93 mg/dL 20-275 normal Not Available [facility] [place] [facility] [address], [place], [address], 02/26/2022 13:38:08 02/26/20 22 02/26/2022 ALBUM IN, RANDO M URINE W/CRE ATINI NE albumin, urine 13.1 mg/dL see note: normal Refer ence Range : Refer ence Range Not estab lishe d Not Available [facility] [place] [facility] [address], [place], [address], 02/26/2022 13:38:08 02/26/20 22 02/26/2022 ALBUM IN, RANDO M URINE W/CRE ATINI NE albumin/crea tinine ratio, random urine 141 mcg/m g_cre at <30 high The ADA defin es abnor malit ies in album in excre tion as follo ws: Album inuri a Categ ory Resul t (mcg/ mg creat inine ) Yas l to Mildl y incre ased <30 Moder ately incre ased 30-29 9 Sever corazon incre ased > OR = 300 The ADA recom mends that at least two of three speci mens colle cted withi n a 3-6 month perio d be abnor mal befor e consi marcos g a patie nt to be withi n a diagn ostic categ ory. Not Available [facility] [place] [facility] [address], [place], [address], 02/26/2022 13:38:08 02/26/20 22 02/26/2022 LIPID PANEL , STAND BRIANNA cholesterol, total 118 mg/dL <200 normal Not Available [facility] [place] [facility] [address], [place], [address], 02/26/2022 13:38:08 02/26/20 22 02/26/2022 LIPID PANEL , STAND BRIANNA HDL cholesterol 46 mg/dL > or = 50 low Not Available [facility] [place] [facility] [address], [place], [address], 02/26/2022 13:38:08 02/26/20 22 02/26/2022 LIPID PANEL , STAND BRIANNA triglyceride s 123 mg/dL <150 normal Not Available [facility] [place] [facility] [address], [place], [address], 02/26/2022 13:38:08 02/26/20 22 02/26/2022 LIPID PANEL , STAND BRIANNA LDL-choleste rol 52 mg/dL _(jennifer c) normal Refer ence range : <100 Zuly able range <100 mg/dL for prima ry preve ntion ; <70 mg/dL for patie nts with CHD or diabe tic patie nts with > or = 2 CHD risk facto rs. LDL-C is now calcu lated using the May n-Hop kins calcu carlo n, which is a valid ated novel yoelo d pricila sky r accur acy than the Fried geraldine equat ion in the estim ation of LDL-C . May han SS et al. TALA. 2013; 310(1 9): 2061- 2068 (http ://ed ucati on.Qu yaimaDi sherylO4ITs. com/f aq/FA Q164) Not Available [facility] [place] [facility] [address], [place], [address], 02/26/2022 13:38:08 02/26/20 22 02/26/2022 LIPID PANEL , STAND BRIANNA chol/HDLC ratio 2.6 (calc ) <5.0 normal Not Available [facility] [place] [facility] [address], [place], [address], 02/26/2022 13:38:08 02/26/20 22 02/26/2022 LIPID PANEL , STAND BRIANNA non HDL cholesterol 72 mg/dL _(jennifer c) <130 normal For patie nts with diabe louise plus 1 major ASCVD risk facto r, treat ing to a non-H DL-C goal of <100 mg/dL (LDL- C of <70 mg/dL ) is consi dered a thera peuti c optio n. Not Available [facility] [place] [facility] [address], [place], [address], 02/26/2022 13:38:08 02/26/20 22 02/26/2022 COMPR EHENS JEWEL METAB OLIC PANEL glucose 82 mg/dL 65-99 normal Fasti ng refer ence inter lyric Not Available [facility] [place] [facility] [address], [place], [address], 02/26/2022 13:38:09 02/26/20 22 02/26/2022 COMPR EHENS JEWEL METAB OLIC PANEL urea nitrogen (BUN) 23 mg/dL 7-25 normal Not Available [facility] [place] [facility] [address], [place], [address], 02/26/2022 13:38:09 02/26/20 22 02/26/2022 COMPR EHENS JEWEL METAB OLIC PANEL creatinine 0.90 mg/dL 0.60-0 .93 normal For patie nts >49 years of age, the refer ence limit for Creat inine is appro ximat corazon 13% highe r for peopl e ident ified as Afric an-Am partha n. Not Available [facility] [place] [facility] [address], [place], [address], 02/26/2022 13:38:09 02/26/20 22 02/26/2022 COMPR EHENS JEWEL METAB OLIC PANEL eGFR non-afr. paraguayan 63 mL/mi n/1.7 3m2 > or = 60 normal Not Available [facility] [address], [place], [address], 02/26/2022 13:38:09 02/26/20 22 02/26/2022 COMPR EHENS JEWEL METAB OLIC PANEL eGFR 74 mL/mi n/1.7 3m2 > or = 60 normal Not Available [facility] [address], [place], [address], 02/26/2022 13:38:09 02/26/20 22 02/26/2022 COMPR EHENS JEWEL METAB OLIC PANEL BUN/creatini ne ratio NOT APPLIC ABLE (calc ) 6-22 Not Available [facility] [address], [place], [address], 02/26/2022 13:38:09 02/26/20 22 02/26/2022 COMPR EHENS JEWEL METAB OLIC PANEL sodium 143 mmol/ L 135-14 6 normal Not Available [facility] [address], [place], [address], 02/26/2022 13:38:09 02/26/20 22 02/26/2022 COMPR EHENS JEWEL METAB OLIC PANEL potassium 4.1 mmol/ L 3.5-5. 3 normal Not Available [facility] [address], [place], [address], 02/26/2022 13:38:09 02/26/20 22 02/26/2022 COMPR EHENS JEWEL METAB OLIC PANEL chloride 107 mmol/ L 98-110 normal Not Available [facility] [address], [place], [address], 02/26/2022 13:38:09 02/26/20 22 02/26/2022 COMPR EHENS JEWEL METAB OLIC PANEL carbon dioxide 28 mmol/ L 20-32 normal Not Available [facility] [address], [place], [address], 02/26/2022 13:38:09 02/26/20 22 02/26/2022 COMPR EHENS JEWEL METAB OLIC PANEL calcium 9.4 mg/dL 8.6-10 .4 normal Not Available [facility] [address], [place], [address], 02/26/2022 13:38:09 02/26/20 22 02/26/2022 COMPR EHENS JEWEL METAB OLIC PANEL protein, total 6.1 g/dL 6.1-8. 1 normal Not Available [facility] [address], [place], [address], 02/26/2022 13:38:09 02/26/20 22 02/26/2022 COMPR EHENS JEWEL METAB OLIC PANEL albumin 3.9 g/dL 3.6-5. 1 normal Not Available [facility] [address], [place], [address], 02/26/2022 13:38:09 02/26/20 22 02/26/2022 COMPR EHENS JEWEL METAB OLIC PANEL globulin 2.2 g/dL_ (calc ) 1.9-3. 7 normal Not Available [facility] [address], [place], [address], 02/26/2022 13:38:09 02/26/20 22 02/26/2022 COMPR EHENS JEWEL METAB OLIC PANEL albumin/glob ulin ratio 1.8 (calc ) 1.0-2. 5 normal Not Available [facility] [address], [place], [address], 02/26/2022 13:38:09 02/26/20 22 02/26/2022 COMPR EHENS JEWEL METAB OLIC PANEL bilirubin, total 0.5 mg/dL 0.2-1. 2 normal Not Available [facility] [address], [place], [address], 02/26/2022 13:38:09 02/26/20 22 02/26/2022 COMPR EHENS JEWEL METAB OLIC PANEL alkaline phosphatase 100 U/L 37-153 normal Not Available [facility] [address], [place], [address], 02/26/2022 13:38:09 02/26/20 22 02/26/2022 COMPR EHENS JEWEL METAB OLIC PANEL AST 15 U/L 10-35 normal Not Available [facility] [address], [place], [address], 02/26/2022 13:38:09 02/26/20 22 02/26/2022 COMPR EHENS JEWEL METAB OLIC PANEL ALT 7 U/L 6-29 normal Not Available [facility] [address], [place], [address], 02/26/2022 13:38:09 02/26/2002/26/2022 HEMOG LOBIN A1C hemoglobin A1C 9.7 %_of_ total _HGB <5.7 high For someo ne witho ut known diabe louise, a hemog lobin A1c value of 6.5% or great er indic ates that they may have diabe louise and this shoul d be confi rmed with a follo w-up test. For someo ne with known diabe louise, a value <7% indic ates that their diabe louise is well contr olled and a value great er than or equal to 7% indic ates subop timal contr ol. A1c targe ts shoul d be indiv idual ized based on durat ion of diabe louise, age, comor bid condi tions , and other consi derat ions. Curre ntly, no conse nsus exist s regar ding use of hemog lobin A1c for diagn osis of diabe louise for child bryant. Not Available [facility] [place] [facility] [address], [place], [address], 02/26/2022 13:38:09 02/26/20 22 02/26/2022 CBC (INCL UDES DIFF/ PLT) white blood cell count 8.7 thous and/u L 3.8-10 .8 normal Not Available [facility] [place] [facility] [address], [place], [address], 02/26/2022 13:38:10 02/26/20 22 02/26/2022 CBC (INCL UDES DIFF/ PLT) red blood cell count 4.26 bhargavi on/uL 3.80-5 .10 normal Not Available [facility] [place] [facility] [address], [place], [address], 02/26/2022 13:38:10 02/26/20 22 02/26/2022 CBC (INCL UDES DIFF/ PLT) hemoglobin 11.5 g/dL 11.7-1 5.5 low Not Available [facility] [place] [facility] [address], [place], [address], 02/26/2022 13:38:10 02/26/20 22 02/26/2022 CBC (INCL UDES DIFF/ PLT) hematocrit 36.3 % 35.0-4 5.0 normal Not Available [facility] [place] [facility] [address], [place], [address], 02/26/2022 13:38:10 02/26/20 22 02/26/2022 CBC (INCL UDES DIFF/ PLT) MCV 85.2 fL 80.0-1 00.0 normal Not Available [facility] [place] [facility] [address], [place], [address], 02/26/2022 13:38:10 02/26/20 22 02/26/2022 CBC (INCL UDES DIFF/ PLT) MCH 27.0 pg 27.0-3 3.0 normal Not Available [facility] [place] [facility] [address], [place], [address], 02/26/2022 13:38:10 02/26/20 22 02/26/2022 CBC (INCL UDES DIFF/ PLT) MCHC 31.7 g/dL 32.0-3 6.0 low Not Available [facility] [address], [place], [address], 02/26/2022 13:38:10 02/26/20 22 02/26/2022 CBC (INCL UDES DIFF/ PLT) RDW 13.1 % 11.0-1 5.0 normal Not Available [facility] [address], [place], [address], 02/26/2022 13:38:10 02/26/20 22 02/26/2022 CBC (INCL UDES DIFF/ PLT) platelet count 292 thous and/u L 140-40 0 normal Not Available [facility] [address], [place], [address], 02/26/2022 13:38:10 02/26/20 22 02/26/2022 CBC (INCL UDES DIFF/ PLT) MPV 12.2 fL 7.5-12 .5 normal Not Available [facility] [address], [place], [address], 02/26/2022 13:38:10 02/26/20 22 02/26/2022 CBC (INCL UDES DIFF/ PLT) absolute neutrophils 5298 cells /uL 1500-7 800 normal Not Available [facility] [place] [facility] [address], [place], [address], 02/26/2022 13:38:10 02/26/20 22 02/26/2022 CBC (INCL UDES DIFF/ PLT) absolute lymphocytes 2036 cells /uL 850-39 00 normal Not Available [facility] [address], [place], [address], 02/26/2022 13:38:10 02/26/20 22 02/26/2022 CBC (INCL UDES DIFF/ PLT) absolute monocytes 566 cells /uL 200-95 0 normal Not Available [facility] [place] [facility] [address], [place], [address], 02/26/2022 13:38:10 02/26/20 22 02/26/2022 CBC (INCL UDES DIFF/ PLT) absolute eosinophils 722 cells /uL 15-500 high Not Available [facility] [place] [facility] [address], [place], [address], 02/26/2022 13:38:10 02/26/20 22 02/26/2022 CBC (INCL UDES DIFF/ PLT) absolute basophils 78 cells /uL 0-200 normal Not Available [facility] [place] [facility] [address], [place], [address], 02/26/2022 13:38:10 02/26/20 22 02/26/2022 CBC (INCL UDES DIFF/ PLT) neutrophils 60.9 % normal Not Available [facility] [place] [facility] [address], [place], [address], 02/26/2022 13:38:10 02/26/20 22 02/26/2022 CBC (INCL UDES DIFF/ PLT) lymphocytes 23.4 % normal Not Available [facility] [place] [facility] [address], [place], [address], 02/26/2022 13:38:10 02/26/20 22 02/26/2022 CBC (INCL UDES DIFF/ PLT) monocytes 6.5 % normal Not Available [facility] [place] [facility] [address], [place], [address], 02/26/2022 13:38:10 02/26/20 22 02/26/2022 CBC (INCL UDES DIFF/ PLT) eosinophils 8.3 % normal Not Available [facility] [place] [facility] [address], [place], [address], 02/26/2022 13:38:10 02/26/20 22 02/26/2022 CBC (INCL UDES DIFF/ PLT) basophils 0.9 % normal Not Available [facility] [place] [facility] [address], [place], [address], 02/26/2022 13:38:10 03/04/20 22 03/06/2022 CULTU RE, URINE , ROUTI NE culture, urine, routine SEE NOTE CULTU RE, URINE , ROUTI NE Micro Numbe r: [id number] Test Statu s: Final Speci men Sourc e: Urine Speci men Quali ty: Adequ ate Resul t: Mixed genit al wu isola moira. These super ficia l bacte raymundo are not indic ative of a urina ry tract infec tion. No furth er organ ism ident ifica tion is warra nted on this speci men. If clini kayleen indic ated, recol lect clean -catc h, mid-s tream urine and trans sheila immed iatel y to Urine Cultu re Trans port Tube. Not Available [facility] [place] [facility] [address], [place], [address], 03/06/2022 05:11:07 03/04/2003/04/2022 urina lysis , dipst ick leukocytes small negati ve Not Available In-Office Order Internal Use Only DO Not Attach Compendium DO Not Attach Compendium, Do Not Delete/merge, [id number] 03/04/2022 10:05:35 03/04/20 22 03/04/2022 urina lysis , dipst ick nitrite negati ve negati ve Not Available In-Office Order Internal Use Only DO Not Attach Compendium DO Not Attach Compendium, Do Not Delete/merge, [id number] 03/04/2022 10:05:35 03/04/20 22 03/04/2022 urina lysis , dipst ick urobilinogen 0.2 E.U./ dL 0.2 Not Available In-Office Order Internal Use Only DO Not Attach Compendium DO Not Attach Compendium, Do Not Delete/merge, 03/04/2022 10:05:35 03/04/20 22 03/04/2022 urina lysis , dipst ick protein 30 mg/dL negati ve Not Available In-Office Order Internal Use Only DO Not Attach Compendium DO Not Attach Compendium, Do Not Delete/merge, 03/04/2022 10:05:35 03/04/20 22 03/04/2022 urina lysis , dipst ick pH 5.5 5.0-7. 0 Not Available In-Office Order Internal Use Only DO Not Attach Compendium DO Not Attach Compendium, Do Not Delete/merge, 03/04/2022 10:05:35 03/04/20 22 03/04/2022 urina lysis , dipst ick blood modera te negati ve Not Available In-Office Order Internal Use Only DO Not Attach Compendium DO Not Attach Compendium, Do Not Delete/merge, 03/04/2022 10:05:35 03/04/20 22 03/04/2022 urina lysis , dipst ick specific gravity 1.025 1.020- 1.035 Not Available In-Office Order Internal Use Only DO Not Attach Compendium DO Not Attach Compendium, Do Not Delete/merge, 03/04/2022 10:05:35 03/04/20 22 03/04/2022 urina lysis , dipst ick ketone negati ve mg/dL negati ve Not Available In-Office Order Internal Use Only DO Not Attach Compendium DO Not Attach Compendium, Do Not Delete/merge, 03/04/2022 10:05:35 03/04/20 22 03/04/2022 urina lysis , dipst ick bilirubin negati ve negati ve Not Available In-Office Order Internal Use Only DO Not Attach Compendium DO Not Attach Compendium, Do Not Delete/merge, 03/04/2022 10:05:35 04/03/04/2022 urina lysis , dipst ick glucose 500mg/ dL mg/dL negati ve Not Available In-Office Order Internal Use Only DO Not Attach Compendium DO Not Attach Compendium, Do Not Delete/merge, [id number] 03/04/2022 10:05:35 10/14/20 22 10/15/2022 IRON, TIBC AND BALTAZAR TIN PANEL iron, total 44 mcg/d L 45-160 low Not Available [facility] [address], [place], [address], 10/15/2022 05:56:42 10/14/20 22 10/15/2022 IRON, TIBC AND BALTAZAR TIN PANEL iron binding capacity 307 mcg/d L_(ca lc) 250-45 0 normal Not Available [facility] [address], [place], [address], 10/15/2022 05:56:42 10/14/20 22 10/15/2022 IRON, TIBC AND BALTAZAR TIN PANEL % saturation 14 %_(ca lc) 16-45 low Not Available [facility] [address], [place], [address], 10/15/2022 05:56:42 10/14/20 22 10/15/2022 IRON, TIBC AND BALTAZAR TIN PANEL ferritin 19 NG/mL 16-288 normal Not Available [facility] [address], [place], [address], 10/15/2022 05:56:42 10/14/20 22 10/15/2022 LIPID PANEL , STAND BRIANNA cholesterol, total 128 mg/dL <200 normal Not Available [facility] [address], [place], [address], 10/15/2022 05:56:43 10/14/20 22 10/15/2022 LIPID PANEL , STAND BRIANNA HDL cholesterol 48 mg/dL > or = 50 low Not Available [facility] [address], [place], [address], 10/15/2022 05:56:43 10/14/20 22 10/15/2022 LIPID PANEL , STAND BRIANNA triglyceride s 112 mg/dL <150 normal Not Available [facility] [place] [facility] [address], [place], [address], 10/15/2022 05:56:43 10/14/20 22 10/15/2022 LIPID PANEL , STAND BRIANNA LDL-choleste rol 60 mg/dL _(jennifer c) normal Refer ence range : <100 Zuly able range <100 mg/dL for prima ry preve ntion ; <70 mg/dL for patie nts with CHD or diabe tic patie nts with > or = 2 CHD risk facto rs. LDL-C is now calcu lated using the May n-Hop kins calcu carlo n, which is a valid ated novel andre sky r accur acy than the Fried geraldine equat ion in the estim ation of LDL-C . May han SS et al. TALA. 2013; 310(1 9): 2061- 2068 (http ://ed ucati on.Rivono [employer]ida [employer]. com/f aq/FA Q164) Not Available [facility] [place] [facility] [address], [place], [address], 10/15/2022 05:56:43 10/14/20 22 10/15/2022 LIPID PANEL , STAND BRIANNA chol/HDLC ratio 2.7 (calc ) <5.0 normal Not Available [facility] [place] [facility] [address], [place], [address], 10/15/2022 05:56:43 10/14/20 22 10/15/2022 LIPID PANEL , STAND BRIANNA non HDL cholesterol 80 mg/dL _(jennifer c) <130 normal For patie nts with diabe louise plus 1 major ASCVD risk facto r, treat ing to a non-H DL-C goal of <100 mg/dL (LDL- C of <70 mg/dL ) is consi dered a thera peuti c optio n. Not Available [facility] [place] [facility] [address], [place], [address], 10/15/2022 05:56:43 10/14/20 22 10/15/2022 COMPR EHENS JEWEL METAB OLIC PANEL glucose 70 mg/dL 65-99 normal Fasti ng refer ence inter lyric Not Available [facility] [place] [facility] [address], [place], [address], 10/15/2022 05:56:44 10/14/20 22 10/15/2022 COMPR EHENS JEWEL METAB OLIC PANEL urea nitrogen (BUN) 18 mg/dL 7-25 normal Not Available [facility] [place] [facility] [address], [place], [address], 10/15/2022 05:56:44 10/14/20 22 10/15/2022 COMPR EHENS JEWEL METAB OLIC PANEL creatinine 0.72 mg/dL 0.60-1 .00 normal Not Available [facility] [place] [facility] [address], [place], [address], 10/15/2022 05:56:44 10/14/20 22 10/15/2022 COMPR EHENS JEWEL METAB OLIC PANEL eGFR 88 mL/mi n/1.7 3m2 > or = 60 normal The eGFR is based on the CKD-E PI 2020 equat ion. To calcu late the new eGFR from a previ ous Creat inine or Cysta tin C resul t, go to https ://rakan farley.kandy vicente.o prieto/amada de dios s/ kdoqi /gfr% 5Fcal culat or Not Available [facility] [place] [facility] [address], [place], [address], 10/15/2022 05:56:44 10/14/20 22 10/15/2022 COMPR EHENS JEWEL METAB OLIC PANEL BUN/creatini ne ratio NOT APPLIC ABLE (calc ) 6-22 Not Available [facility] [address], [place], [address], 10/15/2022 05:56:44 10/14/20 22 10/15/2022 COMPR EHENS JEWEL METAB OLIC PANEL sodium 142 mmol/ L 135-14 6 normal Not Available [facility] [address], [place], [address], 10/15/2022 05:56:44 10/14/20 22 10/15/2022 COMPR EHENS JEWEL METAB OLIC PANEL potassium 4.2 mmol/ L 3.5-5. 3 normal Not Available [facility] [address], [place], [address], 10/15/2022 05:56:44 10/14/20 22 10/15/2022 COMPR EHENS JEWEL METAB OLIC PANEL chloride 105 mmol/ L 98-110 normal Not Available [facility] [address], [place], [address], 10/15/2022 05:56:44 10/14/20 22 10/15/2022 COMPR EHENS JEWEL METAB OLIC PANEL carbon dioxide 27 mmol/ L 20-32 normal Not Available [facility] [address], [place], [address], 10/15/2022 05:56:44 10/14/20 22 10/15/2022 COMPR EHENS JEWEL METAB OLIC PANEL calcium 8.9 mg/dL 8.6-10 .4 normal Not Available [facility] [address], [place], [address], 10/15/2022 05:56:44 10/14/20 22 10/15/2022 COMPR EHENS JEWEL METAB OLIC PANEL protein, total 5.8 g/dL 6.1-8. 1 low Not Available [facility] [address], [place], [address], 10/15/2022 05:56:44 10/14/20 22 10/15/2022 COMPR EHENS JEWEL METAB OLIC PANEL albumin 3.8 g/dL 3.6-5. 1 normal Not Available [facility] [address], [place], [address], 10/15/2022 05:56:44 10/14/20 22 10/15/2022 COMPR EHENS JEWEL METAB OLIC PANEL globulin 2.0 g/dL_ (calc ) 1.9-3. 7 normal Not Available [facility] [address], [place], [address], 10/15/2022 05:56:44 10/14/20 22 10/15/2022 COMPR EHENS JEWEL METAB OLIC PANEL albumin/glob ulin ratio 1.9 (calc ) 1.0-2. 5 normal Not Available [employer] [facility] [address], [place], [address], 10/15/2022 05:56:44 10/14/20 22 10/15/2022 COMPR EHENS JEWEL METAB OLIC PANEL bilirubin, total 0.4 mg/dL 0.2-1. 2 normal Not Available [employer] [facility] [address], [place], [address], 10/15/2022 05:56:44 10/14/20 22 10/15/2022 COMPR EHENS JEWEL METAB OLIC PANEL alkaline phosphatase 97 U/L 37-153 normal Not Available [facility] [address], [place], [address], 10/15/2022 05:56:44 10/14/20 22 10/15/2022 COMPR EHENS JEWEL METAB OLIC PANEL AST 17 U/L 10-35 normal Not Available [employer] [facility] [address], [place], [address], 10/15/2022 05:56:44 10/14/20 22 10/15/2022 COMPR EHENS JEWEL METAB OLIC PANEL ALT 9 U/L 6- normal Not Available [facility] [place] [facility] [address], [place], [address], 10/15/2022 05:56:44 10/14/20 22 10/15/2022 HEMOG LOBIN A1C hemoglobin A1C 6.8 %_of_ total _HGB <5.7 high For someo ne witho ut known diabe louise, a hemog lobin A1c value of 6.5% or great er indic ates that they may have diabe louise and this shoul d be confi rmed with a follo w-up test. For someo ne with known diabe louise, a value <7% indic ates that their diabe louise is well contr olled and a value great er than or equal to 7% indic ates subop timal contr ol. A1c targe ts shoul d be indiv idual ized based on durat ion of diabe louise, age, comor bid condi tions , and other consi derat ions. Curre ntly, no conse nsus exist s noni ding use of hemog lobin A1c for diagn osis of diabe louise for child bryant. Not Available [facility] [place] [facility] [address], [place], [address], 10/15/2022 05:56:45 10/14/20 22 10/15/2022 CBC (INCL UDES DIFF/ PLT) white blood cell count 7.5 thous and/u L 3.8-10 .8 normal Not Available [facility] [place] [facility] [address], [place], [address], 10/15/2022 05:56:46 10/14/20 22 10/15/2022 CBC (INCL UDES DIFF/ PLT) red blood cell count 3.80 bhargavi on/uL 3.80-5 .10 normal Not Available [facility] [place] [facility] [address], [place], [address], 10/15/2022 05:56:46 10/14/20 22 10/15/2022 CBC (INCL UDES DIFF/ PLT) hemoglobin 10.4 g/dL 11.7-1 5.5 low Not Available [facility] [address], [place], [address], 10/15/2022 05:56:46 10/14/20 22 10/15/2022 CBC (INCL UDES DIFF/ PLT) hematocrit 33.0 % 35.0-4 5.0 low Not Available [facility] [place] [facility] [address], [place], [address], 10/15/2022 05:56:46 10/14/20 22 10/15/2022 CBC (INCL UDES DIFF/ PLT) MCV 86.8 fL 80.0-1 00.0 normal Not Available [facility] [address], [place], [address], 10/15/2022 05:56:46 10/14/20 22 10/15/2022 CBC (INCL UDES DIFF/ PLT) MCH 27.4 pg 27.0-3 3.0 normal Not Available [facility] [address], [place], [address], 10/15/2022 05:56:46 10/14/20 22 10/15/2022 CBC (INCL UDES DIFF/ PLT) MCHC 31.5 g/dL 32.0-3 6.0 low Not Available [facility] [place] [facility] [address], [place], [address], 10/15/2022 05:56:46 10/14/20 22 10/15/2022 CBC (INCL UDES DIFF/ PLT) RDW 12.5 % 11.0-1 5.0 normal Not Available [facility] [address], [place], [address], 10/15/2022 05:56:46 10/14/20 22 10/15/2022 CBC (INCL UDES DIFF/ PLT) platelet count 122 thous and/u L 140-40 0 low Not Available [facility] [address], [place], [address], 10/15/2022 05:56:46 10/14/20 22 10/15/2022 CBC (INCL UDES DIFF/ PLT) MPV 10.9 fL 7.5-12 .5 normal Not Available [facility] [address], [place], [address], 10/15/2022 05:56:46 10/14/20 22 10/15/2022 CBC (INCL UDES DIFF/ PLT) absolute neutrophils 4508 cells /uL 1500-7 800 normal Not Available [facility] [address], [place], [address], 10/15/2022 05:56:46 10/14/20 22 10/15/2022 CBC (INCL UDES DIFF/ PLT) absolute lymphocytes 1680 cells /uL 850-39 00 normal Not Available [facility] [address], [place], [address], 10/15/2022 05:56:46 10/14/20 22 10/15/2022 CBC (INCL UDES DIFF/ PLT) absolute monocytes 510 cells /uL 200-95 0 normal Not Available [facility] [address], [place], [address], 10/15/2022 05:56:46 10/14/20 22 10/15/2022 CBC (INCL UDES DIFF/ PLT) absolute eosinophils 743 cells /uL 15-500 high Not Available [facility] [address], [place], [address], 10/15/2022 05:56:46 10/14/20 22 10/15/2022 CBC (INCL UDES DIFF/ PLT) absolute basophils 60 cells /uL 0-200 normal Not Available [facility] [address], [place], [address], 10/15/2022 05:56:46 10/14/20 22 10/15/2022 CBC (INCL UDES DIFF/ PLT) neutrophils 60.1 % normal Not Available [facility] [address], [place], [address], 10/15/2022 05:56:46 10/14/20 22 10/15/2022 CBC (INCL UDES DIFF/ PLT) lymphocytes 22.4 % normal Not Available [facility] [address], [place], [address], 10/15/2022 05:56:46 10/14/20 22 10/15/2022 CBC (INCL UDES DIFF/ PLT) monocytes 6.8 % normal Not Available [facility] [address], [place], [address], 10/15/2022 05:56:46 10/14/20 22 10/15/2022 CBC (INCL UDES DIFF/ PLT) eosinophils 9.9 % normal Not Available [facility] [address], [place], [address], 10/15/2022 05:56:46 10/14/20 22 10/15/2022 CBC (INCL UDES DIFF/ PLT) basophils 0.8 % normal Not Available [facility] [address], [place], [address], 10/15/2022 05:56:46 11/11/20 22 11/11/2022 CBC (H/H, RBC, INDIC ES, WBC, PLT) white blood cell count 5.2 thous and/u L 3.8-10 .8 normal Not Available [facility] [address], [place], [address], 11/11/2022 23:52:50 11/11/20 22 11/11/2022 CBC (H/H, RBC, INDIC ES, WBC, PLT) red blood cell count 3.84 bhargavi on/uL 3.80-5 .10 normal Not Available [facility] [address], [place], [address], 11/11/2022 23:52:50 11/11/20 22 11/11/2022 CBC (H/H, RBC, INDIC ES, WBC, PLT) hemoglobin 10.3 g/dL 11.7-1 5.5 low Not Available [facility] [address], [place], [address], 11/11/2022 23:52:50 11/11/20 22 11/11/2022 CBC (H/H, RBC, INDIC ES, WBC, PLT) hematocrit 32.1 % 35.0-4 5.0 low Not Available [facility] [address], [place], [address], 11/11/2022 23:52:50 11/11/20 22 11/11/2022 CBC (H/H, RBC, INDIC ES, WBC, PLT) MCV 83.6 fL 80.0-1 00.0 normal Not Available [facility] [address], [place], [address], 11/11/2022 23:52:50 11/11/20 22 11/11/2022 CBC (H/H, RBC, INDIC ES, WBC, PLT) MCH 26.8 pg 27.0-3 3.0 low Not Available [facility] [address], [place], [address], 11/11/2022 23:52:50 11/11/20 22 11/11/2022 CBC (H/H, RBC, INDIC ES, WBC, PLT) MCHC 32.1 g/dL 32.0-3 6.0 normal Not Available [facility] [address], [place], [address], 11/11/2022 23:52:50 11/11/20 22 11/11/2022 CBC (H/H, RBC, INDIC ES, WBC, PLT) RDW 12.4 % 11.0-1 5.0 normal Not Available [facility] [place] [facility] [address], [place], [address], 11/11/2022 23:52:50 11/11/20 22 11/11/2022 CBC (H/H, RBC, INDIC ES, WBC, PLT) platelet count 138 thous and/u L 140-40 0 low Not Available [facility] [address], [place], [address], 11/11/2022 23:52:50 11/11/20 22 11/11/2022 CBC (H/H, RBC, INDIC ES, WBC, PLT) MPV 11.5 fL 7.5-12 .5 normal Not Available [facility] [address], [place], [address], 11/11/2022 23:52:50 05/22/20 23 05/22/2023 HbA1c (hemo globi n A1c), blood A1C 7.7 Not Available Not Avail[facility] 06/04/2023 17:08:30 Result Notes None recorded. 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 650322052 Active Not Available [facility] 2 00:52:28 Type 2 diabetes mellitus 55463400 Active 2018 Not Available [facility] 2 00:52:28 Hyperlipi demia 67241895 Active Not Available [facility] 2 00:52:28 Essential hypertens ion 13527824 Active Not Available [facility] 2 00:52:29 Diarrhea 83524715 Completed Not Available [facility] 2 00:52:29 Diabetes mellitus 50514757 Completed Not Available [facility] 2 00:52:29 Problem Notes None recorded. Procedures Surgical History Date Name Laterality Status Provider Name and Address Organization Details Recorded Time 12/22/19 23 diabetic retinal eye exam completed Courtney Mattson [facility] 06/11/2023 14:58:33 03/04/20 22 Quality Functional Assessment completed Albaro Blankenship [facility] 03/04/2022 08:24:04 03/04/20 22 Quality Medication Reviewed and Updated completed Albaro Blankenship [facility] 03/04/2022 08:24:04 03/04/20 22 Quality BMI with follow up completed Albaro Blankenship [facility] 03/04/2022 08:24:04 03/04/20 22 Quality Advanced Care Planning completed Albaro Blankenship [facility] 03/04/2022 08:24:04 03/04/20 22 Quality Incontinence Screening completed Albaro Blankenship [facility] 03/04/2022 08:24:04 03/04/20 22 Medicare AWV - Screening Schedule completed Shiraz Jaeger MD [address] [address], [place], [address], [facility] 03/04/2022 10:34:31 03/04/20 22 Quality Fall Risk Assessment completed Albaro Blankenship [facility] 03/04/2022 08:24:04 01/06/20 22 diabetic retinal eye exam completed Courtney Mattson [facility] 09/24/2022 18:55:43 02/16/20 17 screening colonoscopy completed Albaro Blankenship [facility] 03/04/2022 09:43:07 02/15/20 12 screening mammography completed Albaro Blankenship [facility] 03/04/2022 09:42:54 Imaging Results None recorded. Procedure Notes None recorded. Medical Equipment None Reported. Allergies Allergen ID Allergen Name Allergen Category Reaction Reaction Severity Criticality Documentation Date Start Date Code Code System Note Provider Name and Address Organization Details Recorded Time 827628 pioglitaz one medicatio n itching Not available Not available 11/17/2021 77166 RxNorm Emmanuel Hickman nikky [facility] 08:51:35 Medications Name Sig Start Date Stop Date Status Note LastModified by Organization Details LastModified Time pioglitazo ne 15 mg tablet Take 1 tablet every day by oral route. 03/27 completed dosage change Not Available Not Available Not Available atorvastat in 40 mg tablet TAKE 1 TABLET BY MOUTH ONCE DAILY active Not Available Not Available No t Available etodolac 300 mg capsule Take 1 capsule twice a day by oral route as needed. active Not Available Not Available No t Available lisinopril 20 mg-hydroch lorothiazi de 12.5 mg tablet Take 1 tablet by mouth once daily 02/27 completed Not Available Not Available Not Available ofloxacin 0.3 % eye drops 10/23 completed Not Available Not Available Not Available glipizide ER 10 mg tablet, extended release 24 hr Take 1 tablet twice a day by oral route. active Not Available Not Available No t Available promethazi ne 12.5 mg tablet TAKE 1 TABLET BY MOUTH EVERY 6 HOURS 03/09 completed Not Available Not Available Not Available metronidaz ole 250 mg tablet 12/06 completed Not Available Not Available Not Available glipizide ER 5 mg tablet, extended release 24 hr TAKE 1 TABLET BY MOUTH ONCE DAILY 08/29 completed Not Available Not Available Not Available Zithromax Z-Kendrick 250 mg tablet Take 2 TABLETS TODAY THEN ONE TAB QD FOR 4 DAYS 03/04 completed Not Available Not Available Not Available Lantus U-100 Insulin 100 unit/mL subcutaneo us solution INJECT 14 UNITS SUBCUTAN EOUSLY ONCE DAILY IN THE MORNING 2021 active Not Available Not Available Not Avai lable Accu-Chek Softclix Lancets USE 1 TO CHECK GLUCOSE 4 TIMES DAILY active Not Available Not Available No t Available pioglitazo ne 45 mg tablet Take 1 tablet every day by oral route for 90 days. 03/08 completed Not Available Not Available Not Available meclizine 12.5 mg tablet 10/20 completed Not Available Not Available Not Available acetaminop hen 300 mg-codeine 30 mg tablet 12/09 completed Not Available Not Available Not Available sulfametho xazole 800 mg-trimeth oprim 160 mg tablet Take 1 tablet every 12 hours by oral route for 7 days. 03/04 completed Not Available Not Available Not Available ketorolac 0.5 % eye drops 03/04 completed Not Available Not Available Not Available Tessalon Perles 100 mg capsule Take 1 capsule every 8 hours by oral route. 03/04 completed Not Available Not Available Not Available prednisolo ne acetate 1 % eye drops,susp ension 03/04 completed Not Available Not Available Not Available meclizine 25 mg tablet Take 1 tablet 3 times a day by oral route as needed. 2021 active Not Available Not Available Not Avai lable hyoscyamin e 0.125 mg disintegra ting tablet TAKE 1 TABLET BY MOUTH EVERY 4 HOURS NEEDED 10/20 completed Not Available Not Available Not Available cephalexin 500 mg capsule TAKE 1 CAPSULE BY MOUTH EVERY 8 HOURS 08/30 completed Not Available Not Available Not Available metformin 1,000 mg tablet Take 1 tablet by mouth twice daily 2022 active Not Available Not Available Not Avai lable lisinopril 30 mg tablet Take 1 tablet(s ) every day by oral route for 90 days. 10/23 completed Not Available Not Available Not Available Monurol 3 gram oral packet 08/12 completed Not Available Not Available Not Available Nasonex 50 mcg/actuat ion Ackley Ackley 2 sprays every day by intranas al route. active Not Available Not Available No t Available prednisone 5 mg tablets in a dose pack 6 tabs PO day 1; 5 PO day 2; 4 PO day 3; 3 PO day 4; 2 PO day 5; 1 PO day 6 - in divided doses 03/04 completed Not Available Not Available Not Available pioglitazo ne 30 mg tablet Take 1 tablet every day by oral route. 09/02 completed Not Available Not Available Not Available ketoconazo le 2 % topical cream APPLY TO THE AFFECTED AREA(S) BY TOPICAL ROUTE ONCE DAILY active Not Available Not Available No t Available lisinopril 40 mg tablet Take 1 tablet by mouth once daily 2022 active Not Available Not Available Not Avai lable fluticason e propionate 50 mcg/actuat ion nasal spray,susp ension 03/08 completed Not Available Not Available Not Available amoxicilli n 500 mg-potassi um clavulanat e 125 mg tablet 08/26 completed Not Available Not Available Not Available oxycodone 5 mg tablet TAKE 1 TABLET BY MOUTH EVERY 5 HOURS FOR ACUTE PAIN EXCEPTIO N. DO NOT EXCEED 6 TABLETS DAY 03/09 completed Not Available Not Available Not Available Novolog FlexPen U-100 Insulin aspart 100 unit/mL (3 mL) subcutaneo us Inject 5 units twice a day sub q 03/28 completed Not Available Not Available Not Available atorvastat in 10/20 completed Not Available Not Available Not Available Imodium A-D 2020 active Not Available Not Available Not Avai lable Aspir-81 1 po qd 02/25 completed Not Available Not Available Not Available glipizide 03/04 completed Not Available Not Available Not Available metformin 10/20 completed Not Available Not Available Not Available Lantus U-100 Insulin 10/20 completed Not Available Not Available Not Available Januvia 100 mg tablet Take 1 tablet every day by oral route. 06/02 completed Not Available Not Available Not Available hydrochlor othiazide 12.5 mg tablet Take 1 tablet every day by oral route. 08/12 completed Not Available Not Available Not Available Cholestyra mine Light 4 gram oral powder Take 1 scoop every day by oral route. active Not Available Not Available No t Available Humalog KwikPen (U-100) Insulin 100 unit/mL subcutaneo us INJECT 2 UNITS SUBCUTAN EOUSLY WITH BREAKFAS T 4 UNITS AT LUNCH & 2 UNITS PRIOR TO DINNER DAILY 2022 active Not Available Not Available Not Avai lable glipizide ER 10 mg 24 hr tablet,ext ended release Take 1 tablet twice a day by oral route. 2014 active Not Available Not Available Not Avai lable Slow Fe 142 mg (45 mg iron) tablet,ext ended release active Not Available Not Available Not Available azelastine 205.5 mcg (0.15 %) nasal spray use 4 times daily as needed 08/23 completed Not Available Not Available Not Available Accu-Chek Softclix Lancing Device+Jose Miguel cets kit check BS qam and with meals 2021 active Not Available Not Available Not Avai lable Suprep Bowel Prep Kit 17.5 gram-3.13 gram-1.6 gram oral solution 03/08 completed Not Available Not Available Not Available Tradjenta 5 mg tablet Take 1 tablet every day by oral route. 06/03 completed Not Available Not Available Not Available Accu-Chek Kay Plus test strips USE 1 STRIP TO CHECK BLOOD GLUCOSE 4 TIMES A DAY 2022 active Not Available Not Available Not Avai lable Accu-Chek Kay Plus Meter 08/12 completed Not Available Not Available Not Available Farxiga 5 mg tablet Take 1 tablet every day by oral route. 06/13 completed Not Available Not Available Not Available Fluarix Quad [id number] (PF) 60 mcg (15 mcg x 4)/0.5 mL IM syringe 03/08 completed Not Available Not Available Not Available Bydureon BCise 2 mg/0.85 mL subcutaneo us auto-injec tor Inject 0.85 mL every week by subcutan eous route. 06/07 completed Not Available Not Available Not Available Fluzone High-Dose 2018- (PF) 180 mcg/0.5 mL intramuscu lar syringe PHARMACI ST ADMINIST ERED IMMUNIZA TION ADMINIST ERED AT TIME OF DISPENSI NG 12/09 completed Not Available Not Available Not Available Fluad Quad ( 65yr up)(PF) 60 mcg (15 mcg x 4)/0.5mL IM syringe INJECT 0.5ML INTRAMUS CULARLY ONCE 02/27 completed Not Available Not Available Not Available Vitals Date Recorded Body mass index (BMI) Body height Oxygen saturation Oxygen saturation in Arterial blood by Pulse oximetry Pain severity - 0-10 verbal numeric rating [Score] - Reported Heart rate Body temperature Body weight Systolic blood pressure Diastolic blood pressure Systolic blood pressure Diastolic blood pressure Provider Name and Address Organization Details Last Updated DateTime 1 25.5 kg/m2 160.02 cm 96 % 96 % 0 84 /min 98.2 [degF] 06280.3 g 164 mm[Hg] 60 mm[Hg] 140 mm[Hg] 70 mm[Hg] Not Available [facility] 2 00:31:33 Date Recorded Body mass index (BMI) Body height Oxygen saturation Oxygen saturation in Arterial blood by Pulse oximetry Pain severity - 0-10 verbal numeric rating [Score] - Reported Heart rate Body temperature Body weight Systolic blood pressure Diastolic blood pressure Provider Name and Address Organization Details Last Updated DateTime 1 24.6 kg/m2 160.02 cm 97 % 97 % 3 78 /min 98.5 [degF] 60449.3 4 g 180 mm[Hg] 70 mm[Hg] Not Available [facility] 2 00:31:33 Date Recorded Body height Body mass index (BMI) Body weight Body temperature Oxygen saturation Oxygen saturation in Arterial blood by Pulse oximetry Respiratory rate Heart rate Pain severity - 0-10 verbal numeric rating [Score] - Reported Systolic blood pressure Diastolic blood pressure Provider Name and Address Organization Details Last Updated DateTime 2 160.02 cm 25.2 kg/m2 83002.1 2 g 98.2 [degF] 99 % 99 % 17 /min 72 /min 3 138 mm[Hg] 82 mm[Hg] Albaro Blankenship [place] - [facility], [facility] 2 09:46:52 Date Recorded Systolic blood pressure Diastolic blood pressure Provider Name and Address Organization Details Last Updated DateTime 03/04/2022 130 mm[Hg] 60 mm[Hg] Shiraz Jaeger MD [address] [address], [place], [address], [place] - [facility] 03/04/2022 10:16:31 Date Recorded Body height Body mass index (BMI) Body weight Respiratory rate Body temperature Heart rate Oxygen saturation Oxygen saturation in Arterial blood by Pulse oximetry Systolic blood pressure Diastolic blood pressure Provider Name and Address Organization Details Last Updated DateTime 2 160.02 cm 25.2 kg/m2 25624.1 2 g 14 /min 98.1 [degF] 73 /min 97 % 97 % 124 mm[Hg] 70 mm[Hg] [facility] 13:29:20 Social History Question Answer Notes LastModified by Organizat ion Details LastModified Time Tobacco Smoking Status Current Every Day Smoker [facility] 11/26/2013 12:12:22 Do You Have An Advance Directive? Yes Information not available 09/25/2022 What Is Your Level Of Alcohol Consumption? Occasional Information not available 09/25/2022 Is Blood Transfusion Acceptable In An Emergency? Yes Information not available 10/20/2022 In The 14 Days Before Symptom Onset, Have You Had Close Contact With A Laboratory-confir med COVID-19 While That Case Was Ill? No Information not available 09/25/2022 In The 14 Days Before Symptom Onset, Have You Had Close Contact With A Person Who Is Under Investigation For COVID-19 While That Person Was Ill? No Information not available 09/25/2022 Have You Been To An Area Known To Be High Risk For COVID-19? No Information not available 09/25/2022 What Type Of Diet Are You Following? REGULAR [email or web address] Information not available 03/04/2022 Alcohol Use Less Than 1 Per Month Information not available 11/26/2013 Do You Smoke? Yes [email or web address] Informati on not available 03/04/2022 Do You Have A Medical Power Of Pediatric Cns? Yes Information not available 10/20/2022 What Was The Date Of Your Most Recent Tobacco Screening? 10/20/2022 Information not available 10/20/2022 What Is Your Current Pack Years? [email or web address] Information not available 09/25/2022 What Is Your Relationship Status? Information not available 10/20/2022 Do You Use Your Seat Belt Or Car Seat Routinely? Yes Information not available 09/25/2022 Are You Sexually Active? No Information not available 09/25/2022 How Much Tobacco Do You Smoke? 1 PPD [email or web address] Information not available 11/26/2013 Do You Use Any Illicit Or Recreational Drugs? No Information not available 09/25/2022 Has Tobacco Cessation Counseling Been Provided? Yes Information not available 09/25/2022 On What Date Was Tobacco Cessation Counseling Provided? 10/20/2022 Information not available 10/20/2022 Do You Or Have You Ever Used Any Other Forms Of Tobacco Or Nicotine? No Information not available 09/25/2022 Sex: Female Functional Status Question Answer Note LastModified by Organization D etails LastModified Time What is your exercise level? None Information not available 09/25/2022 Mental Status None recorded. Family History Relationship Description Onset Age of this Age Resolved Age Notes LastModified by Organization Details LastModified Time Mother [email or web address] Not available 03/2022 13:19:29 Mother Alzheimer's disease Not available 2021 08:51:40 Father [email or web address] Not available 03/2022 13:19:29 Father Heart disease Not available 2021 08:51:40 Brother History of blood disorder Not available 2021 08:51:40 Medical History Condition Response Other Y High blood pressure Y Diabetes Y Gynecological HistoryNo gynecological history recorded. Obstetrics History GPAL:G 0 P 0 0 0 0 Immunizations Vaccine Type Date Status Note Provider Nam e and Address Organization Details Recorded Time Influenza, high-dose, quadrivalent, PF 2 completed SHELDON Brooks [address] [facility] [address], [place], [address], [facility] - [facility], [facility] 10/20/2022 14:02:00 influenza, intradermal, quadrivalent, preservative free 0 completed Not Available [facility] 11/17/2021 01:26:27 zoster live 5 completed Not Available [facility] 11/17/2021 01:26:27 Influenza, split virus, quadrivalent, PF 0 completed Not Available [facility] 11/17/2021 01:26:27 Influenza, high-dose, trivalent, PF 9 completed Not Available [facility] 11/17/2021 01:26:28 Influenza, split virus, quadrivalent, PF 8 completed Not Available [facility] 11/17/2021 01:26:28 COVID-19, mRNA, LNP-S, PF, 100 mcg/0.5mL dose or 50 mcg/0.25mL dose 1 completed Not Available [facility] 11/17/2021 01:26:28 COVID-19, mRNA, LNP-S, PF, 100 mcg/0.5mL dose or 50 mcg/0.25mL dose 1 completed Not Available [facility] 11/17/2021 01:26:28 zoster live 5 completed Not Available [facility] 11/17/2021 01:26:28 Influenza, high-dose, quadrivalent, PF 1 completed Not Available [facility] 11/17/2021 01:26:28 pneumococcal polysaccharide PPV23 7 completed Not Available [facility] 11/17/2021 01:26:28 Influenza, high-dose, trivalent, PF 6 completed Not Available [facility] 11/17/2021 01:26:28 Pneumococcal conjugate PCV 13 5 completed Not Available [facility] 11/17/2021 01:26:28 Influenza, high-dose, trivalent, PF 5 completed Not Available [facility] 11/17/2021 01:26:28 COVID-19, mRNA, LNP-S, PF, 100 mcg/0.5mL dose or 50 mcg/0.25mL dose 1 completed Shiraz Jaeger MD [address] [address], [place], [address], [facility] - [facility], [facility] 03/04/2022 10:00:59 SARS-COV-2 (COVID-19) vaccine, UNSPECIFIED 3 completed Emmanuel Hickman [facility], [facility] 09/14/2023 09:52:25 influenza nasal, unspecified formulation 3 completed RG Bustillo - [facility], [facility] 10/06/2023 11:37:58 Past Encounters Encounter ID Performer Location Encounter Start Date Encounter Closed Date Diagnosis/Indication Diagnosis SNOMED-CT Code Diagnosis ICD10 Code Diagnosis Note [id number] Jonathan Saha DO [facility] [address] [place] [address] 11/26/2013 12:04:15 11/26/2013 12:45:08 Acute bronchitis [id number] begin medication s as prescibed. Instructed to follow up if not improved. [id number] [facility] [address] [address] [address] [place] [address] 08/31/2014 00:00:00 08/31/2014 11:12:[id number] [facility] [address] [address] [address] [place] [address] 09/24/2015 00:00:00 09/25/2015 11:19:[id number] [facility] [address] [address] [address] [place] [address] 12/03/2015 00:00:00 12/03/2015 10:58:[id number] [facility] [address] [place] [address] [place] [address] 12/17/2015 00:00:00 12/17/2015 13:34:[id number] [facility] [address] [address] [address] [place] [address] 03/07/2016 00:00:00 03/10/2016 08:32:[id number] [facility] [address] TAM[address] [address] [place] [address] 03/14/2016 00:00:00 03/17/2016 08:23:[id number] [facility] [address] [place] [address] [place] [address] 03/24/2016 00:00:00 03/24/2016 16:55:19 [id number] [facility] [place] [address] [place] [address] [place] [address] 03/27/2016 00:00:00 03/27/2016 14:38:[id number] [facility] [address]396 [place] [address] [place] [address] 04/03/2016 00:00:00 04/03/2016 10:11:[id number] [facility] [address]2086 [place] [address] [place] [address] 05/01/2016 00:00:00 05/01/2016 12:13:[id number] [facility] [address] [place] [address] [place] [address] 05/22/2016 00:00:00 05/23/2016 12:48:[id number] [facility] [address]23 [place] [address] [place] [address] 08/27/2016 00:00:00 08/27/2016 13:26:[id number] [facility] [address] [place] [address] [place] [address] 12/15/2016 00:00:00 12/15/2016 08:28:[id number] [facility] [address]163 [place] [address] [place] [address] 12/23/2016 00:00:00 12/23/2016 17:08:[id number] [facility] [address]7685 [place] [address] [place] [address] 03/12/2017 00:00:00 03/12/2017 11:16:[id number] [facility] [address]32 [place] [address] [place] [address] 08/12/2017 00:00:00 08/12/2017 10:19:[id number] [facility] [address]93 [place] [address] [place] [address] 03/08/2018 00:00:00 03/08/2018 10:43:[id number] [facility] [address] [place] [address] [place] [address] 03/09/2018 00:00:00 03/09/2018 17:30:[id number] [facility] [address]68 [place] [address] [place] [address] 03/15/2018 00:00:00 03/15/2018 17:22:[id number] [facility] [address]1388 [place] [address] [place] [address] 08/23/2018 00:00:00 08/26/2018 17:49:[id number] [facility] [address]776 [place] [address] [place] [address] 12/06/2018 00:00:00 12/10/2018 12:51:[id number] [facility] [address]3932 [place] [address] [place] [address] 03/07/2019 00:00:00 03/08/2019 08:00:[id number] [facility] [address]21 [place] [address] [place] [address] 08/25/2019 00:00:00 08/27/2019 10:23:[id number] [facility] [address]375 [place] [address] [place] [address] 12/09/2019 00:00:00 12/12/2019 07:32:[id number] [facility] [address]126 [place] [address] [place] [address] 03/09/2020 00:00:00 03/09/2020 10:31:[id number] [facility] [address]4516 [place] [address] [place] [address] 08/29/2020 00:00:00 08/29/2020 11:15:[id number] [facility] [address]451 [place] [address] [place] [address] 12/13/2020 00:00:00 12/15/2020 11:08:[id number] [facility] [address]17 [place] [address] [place] [address] 12/19/2020 00:00:00 12/20/2020 14:59:[id number] [facility] 25479 [place] [address] [place] [address] 12/27/2020 00:00:00 12/27/2020 10:22:[id number] [facility] [address]999 T[place] [address] [place] [address] 02/27/2021 00:00:00 02/27/2021 11:09:[id number] [facility] [address]73 T[place] [address] [place] [address] 08/26/2021 00:00:00 08/26/2021 12:59:[id number] [facility] [address]7082 T[place] [address] [place] [address] 08/30/2021 00:00:00 08/30/2021 11:07:[id number] [facility] [address]12 [place] [address] [place] [address] 10/23/2021 00:00:00 10/23/2021 10:26:[id number] [facility] [address]12 [place] [address] [place] [address] 10/25/2021 00:00:00 10/25/2021 19:45:[id number] [facility] [address]3494 [place] [address] [place] [address] 03/04/2022 09:12:17 03/04/2022 12:49:59 Adult health examination [id number] Z00.00 Annual Wellness Visit done today. Recent screening blood work with the patient. The patient defers a tetanus vaccinatio n remainder of her immunizati ons are up-to-date . The patient does not wish to have further mammogram, bone density testing, colonoscop y screening Increased body mass index 42293991 Z68.25 Elevated BMI 25-25.9. Dietary restrictio ns and better therapeuti c lifestyle discussed Diet education 59341042 Z71.3 see above Type 2 raymond betes mellitus [id number] E11.40 Patient's recent fasting sugar was normal but her A1c was elevated at 9.7 she does admit to poor dietary habits she has not been monitoring her sugars regularly. We will start the patient on insulin sliding scale to add to her mealtime insulin she was given sliding scale instructio ns. She was advised to follow an ADA diet and we will recheck her A1c level in 6 months ( sliding scale 0-150 no insulin, 151-200 2units, 201-250 4 units, 251-300 6 units, 301-350 8units, 351-400 10 units) Hyperlipidemia 95614191 E78.5 The patient is tolerating atorvastat in without side effects her recent LDL cholestero l was below her goal of 70. The patient's liver enzymes are normal. The patient was advised to continue low-fat diet we will continue her current dose of atorvastat in and recheck her cholestero l in 6 months Anemia 569032794 D64.9 The patient was started on iron for iron deficiency anemia. The patient does not wish to have a colonoscop y screening her recent CBC is almost normalized with the iron supplement ation we will repeat a CBC and iron levels prior to her next visit Essential hypertension 27337123 I10 Lisinopril was increased to 40 mg at her last visit her blood pressures been well controlled with the current dose of medication her recent potassium and creatinine levels were normal. The patient did have some mild microalbum inuria. I did advise her to continue the current dose of lisinopril recheck her blood pressure in 6 months Peripheral neuropathy due to type 2 diabetes mellitus [id number] 107 E11.42 The patient does have a history of peripheral neuropathy she is not having any pain and does not wish to take any additional medication at this time Chronic vertigo 25596971 11 9105 R42 The patient has a history of chronic vertigo she did have prior MRI of her brain which is unremarkab le she has been having a little flare of the vertigo and has been using meclizine with some relief of the symptoms she does need a refill on the meclizine we will increase the dosage to 25 mg daily she can cut the pill if the 25 mg dose is too strong for her. Overactive urinary bladder [id number] N32.81 Patient has been having occasional urinary incontinen ce. We will check a urinalysis to rule out infection if there is no infection we will start her on oxybutynin after she finishes meclizine [id number] SHELDON Brooks [facility] [address] [facility] [address] [address] [facility] [place] [address] 10/20/2022 13:19:27 10/20/2022 14:01:10 Administration of influenza vaccine [id number] Z23 High-dose flu shot to be given today Hyperglyce shakeel due to type 2 diabetes mellitus [id number] 93672 E11.65 Chronic problem, greatly improved. Patient's A1c improved from 9.7 to 6.8% on her recent labs. She will continue on her current diabetic regimen. I have advised her to make sure she has a bedtime snack and keep a snack on her as her fasting blood sugar is only at 70 to avoid any hypoglycem ia. We will recheck her labs in 6 months. The patient is up-to-date with her diabetic eye exam and a request is already been made for copies of her eye exam. She states that it was negative. Urine microalbum in done 02/25/2022 was negative Hyperlipidemia 72635549 E78.5 Chronic problem, stable. Patient is on atorvastat in 40 mg daily with a goal LDL of less than 70. Current LDL is 60. Patient will continue on this medicine as her liver enzymes are normal and she is not having any myalgias. We will recheck her lipids in 6 months Anemia 515681540 D64.9 Chronic problem, stable. Patient with known iron deficiency anemia. Her hemoglobin has been stable in the tens over the last few years. Current hemoglobin 10.4 with hematocrit of 33.0. Patient does decline colonoscop y. She is completely asymptomat ic. She is taking iron. Her total iron was a little low at 44 with a ferritin of 19 and normal TIBC. I have instructed her to use iron twice a day a few times a week. We will follow her blood count. Essential hypertension 22133241 I10 Chronic problem, stable. Patient blood pressure is well controlled on lisinopril 40 mg daily. Her renal function is within normal limits. Electrolyt es are within normal limits. She denies any chest pain or shortness of breath. She will continue on this medicine. Peripheral neuropathy due to type 2 diabetes mellitus [id number] 107 E11.42 Chronic problem, stable. Patient's A1c did improve to 6.8%. The patient does have a history of peripheral neuropathy she is not having any pain and does not wish to take any additional medication at this time Thrombocyt openic disorder 815549797 D69.6 New problem. Patient's platelet count was noted to be low at 122. This is a new issue. She is not having any complaints . We will recheck her CBC in a few weeks. She does have a history of chronic anemia. Her white blood cell count is normal Health Concerns Section Related Observation LastModified by Organization Detai ls LastModified Time None Recorded Concern Status LastModified by Organization Details LastModified Time None Recorded Advance Directives Directive Y: Payers Encounter Date Sequence Insurance Name Policy Number Policy Espino Covered Member ID Espino Member ID Guarantor Name 03/04/2022 1 [facility] (MEDICARE REPLACEMENT/A DVANTAGE - PPO) [id number] Annette Marcos [id number] Annette Marcos 10/20/2022 1 [facility] (MEDICARE REPLACEMENT/A DVANTAGE - PPO) [id number] Annette Marcos [id number] Annette Marcos Notes Date Note Type Note Provider Name and Address Organization Details Recorded Time 03/04/2022 text/html CORONAVIRUS SCREENING TOOL ?Are you experiencing any NEW symptom(s) listed below that is not due to another health problem ?None of the below ?Is anyone else in your household experiencing any NEW symptoms ?No ?In the past 2 weeks did you have close contact (within 6 feet for at least 15 minutes) with someone with symptoms of COVID-19 or who tested positive for COVID-19 ?No ?In the past 2 weeks have you been tested for COVID-19 ?No, I have not been tested ?Why did you get tested? Please select all that apply ?N/A ?In the past 2 weeks has someone in your household tested positive for COVID-19 ?No ?Have you ever received a dose of COVID-19 vaccine?Yes ?Which vaccine product did you receive?Moderna Imported from [facility] on 03/04/2022 ANNUAL WELLNESS VISIT QUESTIONNAIRE ?Has the patient had any change or additions to their Medical Care Team since the last visit? i.e. pharmacy, medical suppliers, doctors ?No ?What is the Patient's living arrangements?Live with Spouse ?What type of residence does the Patient live in?Single Family Home ?How many stories (floors) to the Patient's residence?Single Story (1 floor) ?Does the Patient have smoke / CO detectors in the home?Yes ?Does the Patient use any of the following Respirator Machines?Nebulizer - No ?Oxygen - No ?CPAP/BiPAP - No ?Is the Patient able to afford his/her medications?Yes ?What type of transportation does the Patient use?I use my own car ?Has the Patient had a weight change in the past 6 months?No ?What type of diet the patient is currently following?Regular ?What best describes the Patient's level of Physical activity?None ?Does the Patient use Tobacco Products?Yes, every day but I am not ready to quit ?Has the Patient seen a Dentist in the last 12 months?No ?Does the Patient always use a seat belt routinely?Yes ?Does the Patient use sunscreen routinely?No ?Does the Patient wear a helmet when riding a bicycle/motorcycle?Do Not Ride ?Is the Patient sexually active?No ?How would the patient rate their health compared to others your age?Same ?How would the patient rate their health today compared to last year?Same ?Does the Patient have Pain?No ?Is the patient using narcotics/opioids for pain?No ?Is the patient taking or using any other harmful substances?No ?How much urinary incontinence does the Patient experience?None ?Does the Patient or people around the Patient have concerns about the Patient's hearing?Yes ?Does the Patient or people around the Patient have concerns about the Patient's vision?No ?Does the Patient use any of the following for mobility assistance?Cane - No ?Crutches - No ?Walker - No ?Wheelchair/Scooter - No ?In the past year has the Patient had concerns about balance or walking or feeling unsteady on his/her feet?No ?In the past year has the Patient had a fall?No ?STEADI Fall Risk Assessment ?I have fallen in the past year. - No ?I use or have been advised to use a cane or walker to get around safely. - No ?Sometimes I feel unsteady when I am walking. - No ?I steady myself by holding onto furniture when walking at home - No ?I am worried about falling. - No ?I need to push with my hands to stand up from a chair. - No ?I have some trouble stepping up onto a curb. - No ?I often have to fitzpatrick to the toilet. - No ?I have lost some feeling in my feet. - Yes ?I take medicine that sometimes makes me feel light-headed or more tired than usual - No ?I take medicine to help me sleep or improve my mood. - No ?I often feel sad or depressed. - No ?Does the Patient's home have any trip hazards like throw rugs or uneven floors?No ?Does the Patient need assistance with Bathing/Toileting/Ea ting ?Bathing/Grooming - No ?Toileting - No ?Eating - No ?Does the Patient or the people around the Patient have concerns about his/her memory?Yes ?Does the Patient have an Advance Directive (Living Will)?Yes ?Colonoscopy Date ?12/21/2016 ?PHQ Score ?No or Minimal depression, (0). Imported from [facility] on 03/04/2022 CORONAVIRUS SCREENING TOOL ?Are you experiencing any NEW symptom(s) listed below that is not due to another health problem ?None of the below ?Is anyone else in your household experiencing any NEW symptoms ?No ?In the past 2 weeks did you have close contact (within 6 feet for at least 15 minutes) with someone with symptoms of COVID-19 or who tested positive for COVID-19 ?No ?In the past 2 weeks have you been tested for COVID-19 ?No, I have not been tested ?Why did you get tested? Please select all that apply ?N/A ?In the past 2 weeks has someone in your household tested positive for COVID-19 ?No ?Have you ever received a dose of COVID-19 vaccine?Yes ?Which vaccine product did you receive?Moderna Imported from [facility] on 03/04/2022 ANNUAL WELLNESS VISIT QUESTIONNAIRE ?Has the patient had any change or additions to their Medical Care Team since the last visit? i.e. pharmacy, medical suppliers, doctors ?No ?What is the Patient's living arrangements?Live with Spouse ?What type of residence does the Patient live in?Single Family Home ?How many stories (floors) to the Patient's residence?Single Story (1 floor) ?Does the Patient have smoke / CO detectors in the home?Yes ?Does the Patient use any of the following Respirator Machines?Nebulizer - No ?Oxygen - No ?CPAP/BiPAP - No ?Is the Patient able to afford his/her medications?Yes ?What type of transportation does the Patient use?I use my own car ?Has the Patient had a weight change in the past 6 months?No ?What type of diet the patient is currently following?Regular ?What best describes the Patient's level of Physical activity?None ?Does the Patient use Tobacco Products?Yes, every day but I am not ready to quit ?Has the Patient seen a Dentist in the last 12 months?No ?Does the Patient always use a seat belt routinely?Yes ?Does the Patient use sunscreen routinely?No ?Does the Patient wear a helmet when riding a bicycle/motorcycle?Do Not Ride ?Is the Patient sexually active?No ?How would the patient rate their health compared to others your age?Same ?How would the patient rate their health today compared to last year?Same ?Does the Patient have Pain?No ?Is the patient using narcotics/opioids for pain?No ?Is the patient taking or using any other harmful substances?No ?How much urinary incontinence does the Patient experience?None ?Does the Patient or people around the Patient have concerns about the Patient's hearing?Yes ?Does the Patient or people around the Patient have concerns about the Patient's vision?No ?Does the Patient use any of the following for mobility assistance?Cane - No ?Crutches - No ?Walker - No ?Wheelchair/Scooter - No ?In the past year has the Patient had concerns about balance or walking or feeling unsteady on his/her feet?No ?In the past year has the Patient had a fall?No ?STEADI Fall Risk Assessment ?I have fallen in the past year. - No ?I use or have been advised to use a cane or walker to get around safely. - No ?Sometimes I feel unsteady when I am walking. - No ?I steady myself by holding onto furniture when walking at home - No ?I am worried about falling. - No ?I need to push with my hands to stand up from a chair. - No ?I have some trouble stepping up onto a curb. - No ?I often have to fitzpatrick to the toilet. - No ?I have lost some feeling in my feet. - Yes ?I take medicine that sometimes makes me feel light-headed or more tired than usual - No ?I take medicine to help me sleep or improve my mood. - No ?I often feel sad or depressed. - No ?Does the Patient's home have any trip hazards like throw rugs or uneven floors?No ?Does the Patient need assistance with Bathing/Toileting/Ea ting ?Bathing/Grooming - No ?Toileting - No ?Eating - No ?Does the Patient or the people around the Patient have concerns about his/her memory?Yes ?Does the Patient have an Advance Directive (Living Will)?Yes ?Colonoscopy Date ?12/21/2016 ?PHQ Score ?No or Minimal depression, (0). Imported from [employer] on 03/04/2022wiliam is here for her annual Medicare wellness visit. The patient had blood work done that was reviewed with her at the appointment today. The patient's annual and screens were up-to-date. The patient's lisinopril dose was increased to 40 mg at her last visit her blood pressure has improved with the higher dosage of medication and she has not noticed any side effects with medication her recent potassium and creatinine levels were normal. The patient did still have some mild urine microalbuminuria. The patient does admit to poor dietary habits and not monitoring her sugars regular. The patient has been taking her insulin. Her recent fasting sugar on blood work was normal but her A1c was elevated. The patient has been taking in addition to the Lantus insulin at nighttime has been taking short acting insulin with mealtime. The patient has not been on a sliding scale she is still taking her metformin regularly. The patient has been noticing some increased urination and is worried that she may have an overactive bladder. The patient has not been having any burning with urination she does have occasional incontinence. The patient is tolerating atorvastatin without side effects her recent LDL cholesterol was excellent blood work and her liver enzymes are normal. The patient did have a mild anemia on her last visit and her iron stores were slightly low she did start an iron supplement and her anemia has improved on recent blood work. The patient did not wish to have a colonoscopy and did not do Hemoccult testing at that time. The patient does have a history of peripheral neuropathy but does not wish to take any medication for that she is not having any discomfort. The patient has a history of intermittent chronic vertigo she did have prior imaging which was unremarkable. The patient has been having a recent flare and needs a refill has noticed improvement with the meclizine. The patient denies any excessive drowsiness with the meclizine. Patient has no other complaints this her meclizine that she uses as needed. The patient Shiraz Jaeger MD [id number], [place], [id number], [place] [facility] 03/04/2022 10:38:49 10/20/2022 text/html Patient is here today for a follow-up visit. She recently had labs done and her labs were reviewed in detail. Her A1c improved from 9.7 to 6.8%. Lipids are at goal with an LDL of 60. CMP shows a fasting blood sugar of 70, total protein of 5.8, normal renal and liver function. CBC shows does a stable chronic anemia with hemoglobin at 10.4, hematocrit 33.0. Iron was mildly low at 44 with a normal TIBC and a ferritin of 19 normal. She is taking iron once daily with vitamin C. Platelets were low at 122. This is new. Patient is not having any current complaints. She feels well overall. She is due for a high-dose flu shot. Her blood pressure remains under excellent control. She denies any chest pain or shortness of breath. She is up-to-date on her eye exam. A request has been made for the copies of her diabetic retinopathy exam. SHELDON Brooks [id number], [place], [id number], [facility] 10/20/2022 14:02:19 OBGyn Episode No OBEpisode recorded.
== END 2025-01-19 14:02 | disposition home or self-care (01) ==
PROVIDERS: PCP Student in an Organized Health Care Education/Training Program; Visit Provider Psychiatry & Neurology Neurology
DX: G25.2 Other specified forms of tremor (principal)
CPT/HCPCS: 99204

== ENCOUNTER → 2025-01-19 13:20 | Outpatient (BNVA) | payer BC, SELFPAY | PROVIDERS: PCP Student in an Organized Health Care Education/Training Program; Visit Provider Psychiatry & Neurology Neurology ==

== ENCOUNTER 2025-05-31 14:58 | Outpatient (AMB) | payer BC, SELFPAY ==
[2025-05-31 14:59] VITALS: BP 120/62; PULSE 66; O2SAT 97
--- NOTE | 2025-05-31 14:59 | MHC.OFFVIS ---
Vital Signs 05/31/25 14:59 Height 5 ft 3 in BP 120/62 Blood Pressure Location Rt brachial Position Sitting Pulse 66 Pulse Source Pulse Oximeter Pulse Oximetry (%) 97 Oxygen Delivery Method Room Air Intake Visit Reasons: 4 mo follow up [place] [facility] Required: No Allergies pioglitazone Allergy (Unknown, Verified 05/31/25 14:59) Unknown acarbose Adverse Reaction (Severe, Verified 05/31/25 14:59) Diarrhea Medication List - Last Reconciled 05/31/25 by Nydia Rouse MD amlodipine mg PO atorvastatin 40 mg PO blood sugar diagnostic (FreeStyle Lite Strips) As directed insulin glargine (Lantus Solostar U-100 Insulin) units subcut insulin lispro (Humalog KwikPen (U-100) Insulin) subcut lancets (Accu-Chek Softclix Lancets) As directed lisinopril 40 mg PO meloxicam 15 mg PO metformin 1,000 mg PO pen needle, diabetic (BD Ultra-Fine Short Pen Needle) As directed propranolol 10 mg PO BID HPI Comments Details: The patient is a 74-year-old Right handed female comes for follow up of tremors.The tremors are better with propranolol but still has tremors. The tremors are primarily in her hands and intermittently extend to her arms and shoulders, exacerbated by cold. These are postural and action tremors, affecting her ability to perform tasks involving fine motor skills like writing and eating certain foods. she is able to write better with propranalol. She reports no difficulty drinking fluids. History from last visit- 01/2025 Concurrent medical issues include lumbar spine osteoarthritis, diabetes mellitus with recent control details unspecified, and essential hypertension currently managed with two medications. Additionally, she underwent gallbladder removal and has experienced a wrist fracture in the past. There is no significant family history of tremors, and the patient does not report any head injuries. She experiences nocturnal numbness and tingling in her feet, a likely diabetes-related symptom. Her lumbar spine osteoarthritis results in pain but not frequent falls, and she uses a walker. [facility] Medical History Coarse tremors Tremor of both hands Tobacco use disorder Overweight Iron deficiency anemia Increased frequency of urination Hyperlipidemia HTN (hypertension) Eczema Diverticulosis of colon Peripheral neuropathy Retinopathy Type 2 diabetes mellitus Carpal tunnel syndrome Chronic back pain Surgical History Hx of cholecystectomy Hx of colonoscopy H/O esophagogastroduodenoscopy Family History Mother Lung cancer Father CAD (coronary artery disease) Social History Alcohol intake: never Patient Tobacco Use Status: Current everyday Tobacco user Physical Exam Vital Signs: Last Vital Signs Pulse 66 05/31/25 14:59 BP 120/62 05/31/25 14:59 Pulse Ox 97 05/31/25 14:59 Oxygen Delivery Method Room Air 05/31/25 14:59 Const General: cooperative, comfortable and no acute distress Nutritional Appearance: average body habitus Orientation/consciousness: patient oriented x3 Eyes Pupils: Equal, round and reactive pupils present Neuro Other: very mild voice tremors Normal voice No tremors today ( last visit had rest action and postural tremors) trouble writing Gait - with walker slow stooped antalgic FFm and foot taps mildly decreased General: patient oriented x3, tone normal, moves all extremities and no focal motor deficits Cranial nerves: Yes Equal, round and reactive pupils present and Yes Nystagmus not present Motor exam (neuro): 5/5 motor strength present throughout and Normal motor muscle tone present throughout Coordination: [id number] test normal Psych Other: - Appearance: The patient appears engaged and follows commands properly. - Mood and Affect: Shows no evidence of mood disturbances. Assessment & Plan Assessment & Plan (1) Coarse tremors: Comment: senile tremors Code(s): G25.2 - Other specified forms of tremor Category: Medical Plan - Increase propranolol 10 mg twice daily with meals; use plenty of fluids.and extra dose as needed 9 2-3 tabs per day ) - Monitor symptoms and report any new dizziness. - Ensure continued management of diabetes and hypertension. Follow up in 1 year No evidence of Parkinsons on todays visit Medications: Changed From propranolol 10 mg PO BID 60 tabs 6RF To propranolol 1 tab bid and 1 tab extra dose as needed orally 2 times a day; 60 tabs 6RF Refilled propranolol 1 tab bid and 1 tab extra dose as needed orally 2 times a day; 90 tabs 6RF Coding Level of Care Code Est Pt Level 4 (31717) Complex EM visit Add On G2211 Diagnoses Coarse tremors G25.2
--- OUTSIDE RECORDS SUMMARY | 2025-05-31 15:27 | XMS_ITS | Data Portability ---
Author Organization [place] - [employer], [facility], [facility] Address [address] [place] [address] Care Team Providers [facility] Location Manager Name Role Phone SHIRAZ JAEGER Primary Care Provider [phone] SHIRAZ JAEGER Referring Provider [phone] MARAL WYATT Assembly Hand Assessment No assessment recorded. Plan of Treatment Reminders Order Date Submit Date Provider Last Modified By Organization Details Last Modified Time Details Appointments None recorded. Lab CBC 2021 023 [facility], [address], [place], [address], 3 15:37:52 HbA1c (hemoglobi n A1c), blood 2021 022 [facility], [address], [place], [address], 2 05:56:45 urinalysis , dipstick 2021 022 [email or web address] In-Office Order, Internal Use Only DO Not Attach Compendium DO Not Attach Compendium, Do Not Delete/merge, [id number] 2 10:32:06 culture, urine 2021 022 [facility], [address], [place], [address], 2 05:11:07 iron + TIBC + ferritin, serum 2021 [facility], [address], [place], [address], 05:56:43 CBC 2021 [facility], [address], [place], [address], 23:52:50 lipid panel, serum 2021 [facility], [address], [place], [address], 05:56:43 CMP, serum or plasma 2021 [facility], [address], [place], [address], 05:56:44 Referral None recorded. Procedures None recorded. Surgeries None recorded. Imaging None recorded. Medication Orders meclizine 25 mg tablet [address] [facility], [address] [place], [address], 10:32:07 Patient TargetsNo targets recorded. Patient Instructions Encounter Date Encounter Id Patient Instructions Last Modified By Organization Details Last Modified Time 03/04/2022 [id number] starting a weigh t loss plan: care instructions Not available 03/04/2022 10:32:06 anemia: care instructions Not available 03/04/2022 10:32:06 high cholesterol : care instructions Not available 03/04/2022 10:32:06 10/20/2022 [id number] influenza (flu) vaccine: care instructions Not available 10/20/2022 14:02:00 Report new or worsening symptoms. Go to the ER if you are experiencing any distress. Not available 10/20/2022 13:55:24 Reason for Referral None Reported. Results Created Date Observation Date Name Description Value Unit Range Abnormal Flag Note LastModifiedBy Organization Detail LastModifiedTime 02/26/20 22 02/26/2022 TSH TSH 1.87 mIU/L 0.40-4 .50 normal Not Available [facility] [place] [facility] [address], [place], [address], 02/26/2022 10:08:15 02/26/20 22 02/26/2022 ALBUM IN, RANDO M URINE W/CRE ATINI NE creatinine, random urine 93 mg/dL 20-275 normal Not Available [facility] [place] [facility] [address], [place], [address], 02/26/2022 13:38:08 02/26/20 22 02/26/2022 ALBUM IN, RANDO M URINE W/CRE ATINI NE albumin, urine 13.1 mg/dL see note: normal Refer ence Range : Refer ence Range Not estab lishe d Not Available [facility] [place] [facility] [address], [place], [address], 02/26/2022 13:38:08 02/26/20 22 02/26/2022 ALBUM IN, [...] Moder ately incre ased 30-29 9 Sever croazon incre ased > OR = 300 The ADA recom mends that at least two of three speci mens colle cted withi n a 3-6 month perio d be abnor mal befor e consi marcos g a patie nt to be withi n a diagn ostic categ ory. Not Available [facility] [place] [facility] [address], [place], [address], 02/26/2022 13:38:08 02/26/20 22 02/26/2022 LIPID PANEL , STAND BRIANNA cholesterol, total 118 mg/dL <200 normal Not Available [facility] [place] [facility] [address], [place], [address], 02/26/2022 13:38:08 02/26/20 22 02/26/2022 LIPID PANEL , STAND BRIANNA HDL cholesterol 46 mg/dL > or = 50 low Not Available [facility] [place] [facility] [address], [place], [address], 02/26/2022 13:38:08 02/26/20 22 02/26/2022 LIPID PANEL , STAND BRIANNA triglyceride s 123 mg/dL <150 normal Not Available [facility] [place] [facility] [address], [place], [address], 02/26/2022 13:38:08 02/26/20 22 02/26/2022 LIPID PANEL [...] a valid ated novel yoelo d pricila davis accur acy than the Fried geraldine equat ion in the estim ation of LDL-C . May han SS et al. TALA. 2013; 310(1 9): 2061- 2068 (http ://ed ucati on.Qu Vida saucedoos tics. com/f aq/FA Q164) Not Available [facility] [place] [facility] [address], [place], [address], 02/26/2022 13:38:08 02/26/20 22 02/26/2022 LIPID PANEL , STAND BRIANNA chol/HDLC ratio 2.6 (calc ) <5.0 normal Not Available [facility] [place] [facility] [address], [place], [address], 02/26/2022 13:38:08 02/26/20 22 02/26/2022 LIPID PANEL , STAND BRIANNA non HDL cholesterol 72 mg/dL _(jennifer c) <130 normal For patie nts with diabe louise plus 1 major ASCVD risk facto r, treat ing to a non-H DL-C goal of <100 mg/dL (LDL- C of <70 mg/dL ) is consi dered a thera peuti c optio n. Not Available [facility] [place] [facility] [address], [place], [address], 02/26/2022 13:38:08 02/26/20 22 02/26/2022 COMPR EHENS JEWEL METAB OLIC PANEL glucose 82 mg/dL 65-99 normal Fasti ng refer ence inter lyric Not Available [facility] [place] [facility] [address], [place], [address], 02/26/2022 13:38:09 02/26/20 22 02/26/2022 COMPR EHENS JEWEL METAB OLIC PANEL urea nitrogen (BUN) 23 mg/dL 7-25 normal Not Available [facility] [place] [facility] [address], [place], [address], 02/26/2022 13:38:09 02/26/20 22 02/26/2022 COMPR EHENS JEWEL METAB OLIC PANEL creatinine 0.90 mg/dL 0.60-0 .93 normal For patie nts >49 years of age, the refer ence limit for Creat inine is appro ximat corazon 13% highe r for peopl e ident ified as Afric an-Am partha n. Not Available [facility] [place] [facility] [address], [place], [address], 02/26/2022 13:38:09 02/26/20 22 02/26/2022 COMPR EHENS JEWEL METAB OLIC PANEL eGFR non-afr. belizean 63 mL/mi n/1.7 3m2 > or = 60 normal Not Available [facility] [address], [place], [address], 02/26/2022 13:38:09 02/26/20 22 02/26/2022 COMPR EHENS JEWEL METAB OLIC PANEL eGFR 74 mL/mi n/1.7 3m2 > or = 60 normal Not Available [facility] [address], [place], [address], 02/26/2022 13:38:09 02/26/20 22 02/26/2022 COMPR EHENS JEWEL METAB OLIC PANEL BUN/creatini ne ratio NOT APPLIC ABLE (calc ) 6-22 Not Available [facility] [address], [place], [address], 02/26/2022 13:38:09 02/26/20 22 02/26/2022 COMPR EHENS JEWEL METAB OLIC PANEL sodium 143 mmol/ L 135-14 6 normal Not Available [facility] [address], [place], [address], 02/26/2022 13:38:09 02/26/20 22 02/26/2022 COMPR EHENS JEWEL METAB OLIC PANEL potassium 4.1 mmol/ L 3.5-5. 3 normal Not Available [facility] [address], [place], [address], 02/26/2022 13:38:09 02/26/20 22 02/26/2022 COMPR EHENS JEWEL METAB OLIC PANEL chloride 107 mmol/ L 98-110 normal Not Available [facility] [address], [place], [address], 02/26/2022 13:38:09 02/26/20 22 02/26/2022 COMPR EHENS JEWEL METAB OLIC PANEL carbon dioxide 28 mmol/ L 20-32 normal Not Available [facility] [address], [place], [address], 02/26/2022 13:38:09 02/26/20 22 02/26/2022 COMPR EHENS JEWEL METAB OLIC PANEL calcium 9.4 mg/dL 8.6-10 .4 normal Not Available [facility] [address], [place], [address], 02/26/2022 13:38:09 02/26/20 22 02/26/2022 COMPR EHENS JEWEL METAB OLIC PANEL protein, total 6.1 g/dL 6.1-8. 1 normal Not Available [facility] [address], [place], [address], 02/26/2022 13:38:09 02/26/20 22 02/26/2022 COMPR EHENS JEWEL METAB OLIC PANEL albumin 3.9 g/dL 3.6-5. 1 normal Not Available [facility] [address], [place], [address], 02/26/2022 13:38:09 02/26/20 22 02/26/2022 COMPR EHENS JEWEL METAB OLIC PANEL globulin 2.2 g/dL_ (calc ) 1.9-3. 7 normal Not Available [facility] [address], [place], [address], 02/26/2022 13:38:09 02/26/20 22 02/26/2022 COMPR EHENS JEWEL METAB OLIC PANEL albumin/glob ulin ratio 1.8 (calc ) 1.0-2. 5 normal Not Available [facility] [address], [place], [address], 02/26/2022 13:38:09 02/26/20 22 02/26/2022 COMPR EHENS JEWEL METAB OLIC PANEL bilirubin, total 0.5 mg/dL 0.2-1. 2 normal Not Available [facility] [address], [place], [address], 02/26/2022 13:38:09 02/26/20 22 02/26/2022 COMPR EHENS JEWEL METAB OLIC PANEL alkaline phosphatase 100 U/L 37-153 normal Not Available [facility] [address], [place], [address], 02/26/2022 13:38:09 02/26/20 22 02/26/2022 COMPR EHENS JEWEL METAB OLIC PANEL AST 15 U/L 10-35 normal Not Available [facility] [address], [place], [address], 02/26/2022 13:38:09 02/26/20 22 02/26/2022 COMPR EHENS JEWEL METAB OLIC PANEL ALT 7 U/L 6-29 normal Not Available [facility] [facility] [address], [place], [address], 02/26/2022 13:38:02/26/20 22 02/26/2022 HEMOG LOBIN A1C hemoglobin A1C 9.7 %_of_ [...] child bryant. Not Available [facility] [place] [facility] [address], [place], [address], 02/26/2022 13:38:09 02/26/20 22 02/26/2022 CBC (INCL UDES DIFF/ PLT) white blood cell count 8.7 thous and/u L 3.8-10 .8 normal Not Available [facility] [place] [facility] [address], [place], [address], 02/26/2022 13:38:10 02/26/20 22 02/26/2022 CBC (INCL UDES DIFF/ PLT) red blood cell count 4.26 bhargavi on/uL 3.80-5 .10 normal Not Available [facility] [place] [facility] [address], [place], [address], 02/26/2022 13:38:10 02/26/20 22 02/26/2022 CBC (INCL UDES DIFF/ PLT) hemoglobin 11.5 g/dL 11.7-1 5.5 low Not Available [facility] [place] [facility] [address], [place], [address], 02/26/2022 13:38:10 02/26/20 22 02/26/2022 CBC (INCL UDES DIFF/ PLT) hematocrit 36.3 % 35.0-4 5.0 normal Not Available [facility] [place] [facility] [address], [place], [address], 02/26/2022 13:38:10 02/26/20 22 02/26/2022 CBC (INCL UDES DIFF/ PLT) MCV 85.2 fL 80.0-1 00.0 normal Not Available [facility] [place] [facility] [address], [place], [address], 02/26/2022 13:38:10 02/26/20 22 02/26/2022 CBC (INCL UDES DIFF/ PLT) MCH 27.0 pg 27.0-3 3.0 normal Not Available [facility] [address], [place], [address], 02/26/2022 13:38:10 02/26/20 22 02/26/2022 CBC (INCL UDES DIFF/ PLT) MCHC 31.7 g/dL 32.0-3 6.0 low Not Available [facility] [address], [place], [address], 02/26/2022 13:38:10 02/26/20 22 02/26/2022 CBC (INCL UDES DIFF/ PLT) RDW 13.1 % 11.0-1 5.0 normal Not Available [facility] [address], [place], [address], 02/26/2022 13:38:10 02/26/20 22 02/26/2022 CBC (INCL UDES DIFF/ PLT) platelet count 292 thous and/u L 140-40 0 normal Not Available [facility] [address], [place], [address], 02/26/2022 13:38:10 02/26/20 22 02/26/2022 CBC (INCL UDES DIFF/ PLT) MPV 12.2 fL 7.5-12 .5 normal Not Available [facility] [address], [place], [address], 02/26/2022 13:38:10 02/26/20 22 02/26/2022 CBC (INCL UDES DIFF/ PLT) absolute neutrophils 5298 cells /uL 1500-7 800 normal Not Available [facility] [address], [place], [address], 02/26/2022 13:38:10 02/26/20 22 02/26/2022 CBC (INCL UDES DIFF/ PLT) absolute lymphocytes 2036 cells /uL 850-39 00 normal Not Available [facility] [place] [facility] [address], [place], [address], 02/26/2022 13:38:10 02/26/20 22 02/26/2022 CBC (INCL UDES DIFF/ PLT) absolute monocytes 566 cells /uL 200-95 0 normal Not Available [facility] [place] [facility] [address], [place], [address], 02/26/2022 13:38:10 02/26/20 22 02/26/2022 CBC (INCL UDES DIFF/ PLT) absolute eosinophils 722 cells /uL 15-500 high Not Available [facility] [place] [facility] [address], [place], [address], 02/26/2022 13:38:10 02/26/20 22 02/26/2022 CBC (INCL UDES DIFF/ PLT) absolute basophils 78 cells /uL 0-200 normal Not Available [facility] [place] [facility] [address], [place], [address], 02/26/2022 13:38:10 02/26/20 22 02/26/2022 CBC (INCL UDES DIFF/ PLT) neutrophils 60.9 % normal Not Available [facility] [place] [facility] [address], [place], [address], 02/26/2022 13:38:10 02/26/20 22 02/26/2022 CBC (INCL UDES DIFF/ PLT) lymphocytes 23.4 % normal Not Available [facility] [place] [facility] [address], [place], [address], 02/26/2022 13:38:10 02/26/20 22 02/26/2022 CBC (INCL UDES DIFF/ PLT) monocytes 6.5 % normal Not Available [facility] [place] [facility] [address], [place], [address], 02/26/2022 13:38:10 02/26/20 22 02/26/2022 CBC (INCL UDES DIFF/ PLT) eosinophils 8.3 % normal Not Available [facility] [place] [facility] [address], [place], [address], 02/26/2022 13:38:10 02/26/20 22 02/26/2022 CBC (INCL UDES DIFF/ PLT) basophils 0.9 % normal Not Available [facility] [place] [facility] [address], [place], [address], 02/26/2022 13:38:10 03/04/20 22 03/06/2022 CULTU RE, URINE , ROUTI NE culture, urine, routine SEE NOTE CULTU RE, URINE , ROUTI NE Micro Numbe r: [id number] Test Statu s: Final Speci men [...] port Tube. Not Available [facility] [place] [facility] [address], [place], [address], 03/06/2022 05:11:07 03/04/20 22 03/04/2022 urina lysis , dipst ick leukocytes small negati ve Not Available In-Office Order Internal Use Only DO Not Attach Compendium DO Not Attach Compendium, Do Not Delete/merge, [id number] 03/04/2022 10:05:35 03/04/20 22 03/04/2022 urina lysis , dipst ick nitrite negati ve negati ve Not Available In-Office Order Internal Use Only DO Not Attach Compendium DO Not Attach Compendium, Do Not Delete/merge, [id number] 03/04/2022 10:05:35 03/04/20 22 03/04/2022 urina lysis , dipst ick urobilinogen 0.2 E.U./ dL 0.2 Not Available In-Office Order Internal Use Only DO Not Attach Compendium DO Not Attach Compendium, Do Not Delete/merge, [facility] 03/04/2022 10:05:35 03/04/20 22 03/04/2022 urina lysis , dipst ick protein 30 mg/dL negati ve Not Available In-Office Order Internal Use Only DO Not Attach Compendium DO Not Attach Compendium, Do Not Delete/merge, [facility] 03/04/2022 10:05:35 03/04/20 22 03/04/2022 urina lysis , dipst ick pH 5.5 5.0-7. 0 Not Available In-Office Order Internal Use Only DO Not Attach Compendium DO Not Attach Compendium, Do Not Delete/merge, [facility] 03/04/2022 10:05:35 03/04/20 22 03/04/2022 urina lysis , dipst ick blood modera te negati ve Not Available In-Office Order Internal Use Only DO Not Attach Compendium DO Not Attach Compendium, Do Not Delete/merge, [facility] 03/04/2022 10:05:35 03/04/20 22 03/04/2022 urina lysis , dipst ick specific gravity 1.025 1.020- 1.035 Not Available In-Office Order Internal Use Only DO Not Attach Compendium DO Not Attach Compendium, Do Not Delete/merge, [facility] 03/04/2022 10:05:35 03/04/20 22 03/04/2022 urina lysis , dipst ick ketone negati ve mg/dL negati ve Not Available In-Office Order Internal Use Only DO Not Attach Compendium DO Not Attach Compendium, Do Not Delete/merge, [facility] 03/04/2022 10:05:35 03/04/20 22 03/04/2022 urina lysis , dipst ick bilirubin negati ve negati ve Not Available In-Office Order Internal Use Only DO Not Attach Compendium DO Not Attach Compendium, Do Not Delete/merge, [facility] 03/04/2022 10:05:35 03/04/20 22 03/04/2022 urina lysis , dipst ick glucose 500mg/ dL mg/dL negati ve Not Available In-Office Order Internal Use Only DO Not Attach Compendium DO Not Attach Compendium, Do Not Delete/merge, [id number] 03/04/2022 10:05:35 10/14/20 22 10/15/2022 IRON, TIBC AND BALTAZAR TIN PANEL iron, total 44 mcg/d L 45-160 low Not Available [facility] [address], [place], [address], 10/15/2022 05:56:42 10/14/2010/15/2022 IRON, TIBC AND BALTAZAR TIN PANEL iron binding capacity 307 mcg/d L_(ca lc) 250-45 0 normal Not Available [facility] [address], [place], [address], 10/15/2022 05:56:42 10/14/20 22 10/15/2022 IRON, TIBC AND BALTAZAR TIN PANEL % saturation 14 %_(ca lc) 16-45 low Not Available [facility] [address], [place], [address], 10/15/2022 05:56:42 10/14/20 22 10/15/2022 IRON, TIBC AND BALTAZAR TIN PANEL ferritin 19 NG/mL 16-288 normal Not Available [facility] [address], [place], [address], 10/15/2022 05:56:42 10/14/20 22 10/15/2022 LIPID PANEL , STAND BRIANNA cholesterol, total 128 mg/dL <200 normal Not Available [facility] [address], [place], [address], 10/15/2022 05:56:43 10/14/20 22 10/15/2022 LIPID PANEL , STAND BRIANNA HDL cholesterol 48 mg/dL > or = 50 low Not Available [facility] [address], [place], [address], 10/15/2022 05:56:43 10/14/20 22 10/15/2022 LIPID PANEL , STAND BRIANNA triglyceride s 112 mg/dL <150 normal Not Available [facility] [place] [facility] [address], [place], [address], 10/15/2022 05:56:43 10/14/20 22 10/15/2022 LIPID PANEL [...] calcu lated using the May n-Hop kins brunou carlo n, which is a valid ated novel andre marmolejote r accur acy than the Fried geraldine equat ion in the estim ation of LDL-C . May han SS et al. TALA. 2013; 310(1 9): 2061- 2068 (http ://ed ucati on.[employer]. [employer]/f aq/FA Q164) Not Available [facility] [place] [facility] [address], [place], [address], 10/15/2022 05:56:43 10/14/20 22 10/15/2022 LIPID PANEL , STAND BRIANNA chol/HDLC ratio 2.7 (calc ) <5.0 normal Not Available [facility] [place] [facility] [address], [place], [address], 10/15/2022 05:56:43 10/14/20 22 10/15/2022 LIPID PANEL , STAND BRIANNA non HDL cholesterol 80 mg/dL _(jennifer c) <130 normal For patie nts with diabe louise plus 1 major ASCVD risk facto r, treat ing to a non-H DL-C goal of <100 mg/dL (LDL- C of <70 mg/dL ) is consi dered a thera peuti c optio n. Not Available [facility] [place] [facility] [address], [place], [address], 10/15/2022 05:56:43 10/14/20 22 10/15/2022 COMPR EHENS JEWEL METAB OLIC PANEL glucose 70 mg/dL 65-99 normal Fasti ng refer ence inter lyric Not Available [facility] [place] [facility] [address], [place], [address], 10/15/2022 05:56:44 10/14/20 22 10/15/2022 COMPR EHENS JEWEL METAB OLIC PANEL urea nitrogen (BUN) 18 mg/dL 7-25 normal Not Available [facility] [place] [facility] [address], [place], [address], 10/15/2022 05:56:44 10/14/20 22 10/15/2022 COMPR EHENS JEWEL METAB OLIC PANEL creatinine 0.72 mg/dL 0.60-1 .00 normal Not Available [facility] [place] [facility] [address], [place], [address], 10/15/2022 05:56:44 10/14/20 22 10/15/2022 COMPR EHENS JEWEL METAB OLIC PANEL eGFR 88 mL/mi n/1.7 3m2 > or = 60 normal The eGFR is based on the CKD-E PI 2020 equat ion. To calcu late the new eGFR from a previ ous Creat inine or Cysta tin C resul t, go to https ://rakan vicente.patrick moreau/amada de dios s/ kdoqi /gfr% 5Fcal culat or Not Available [facility] [place] [facility] [address], [place], [address], 10/15/2022 05:56:44 10/14/20 22 10/15/2022 COMPR EHENS JEWEL METAB OLIC PANEL BUN/creatini ne ratio NOT APPLIC ABLE (calc ) 6-22 Not Available [facility] [address], [place], [address], 10/15/2022 05:56:44 10/14/20 22 10/15/2022 COMPR EHENS JEWEL METAB OLIC PANEL sodium 142 mmol/ L 135-14 6 normal Not Available [facility] [address], [place], [address], 10/15/2022 05:56:44 10/14/20 22 10/15/2022 COMPR EHENS JEWEL METAB OLIC PANEL potassium 4.2 mmol/ L 3.5-5. 3 normal Not Available [facility] [address], [place], [address], 10/15/2022 05:56:44 10/14/20 22 10/15/2022 COMPR EHENS JEWEL METAB OLIC PANEL chloride 105 mmol/ L 98-110 normal Not Available [facility] [address], [place], [address], 10/15/2022 05:56:44 10/14/20 22 10/15/2022 COMPR EHENS JEWEL METAB OLIC PANEL carbon dioxide 27 mmol/ L 20-32 normal Not Available [facility] [address], [place], [address], 10/15/2022 05:56:44 10/14/20 22 10/15/2022 COMPR EHENS JEWEL METAB OLIC PANEL calcium 8.9 mg/dL 8.6-10 .4 normal Not Available [facility] [address], [place], [address], 10/15/2022 05:56:44 10/14/20 22 10/15/2022 COMPR EHENS JEWEL METAB OLIC PANEL protein, total 5.8 g/dL 6.1-8. 1 low Not Available [facility] [address], [place], [address], 10/15/2022 05:56:44 10/14/20 22 10/15/2022 COMPR EHENS JEWEL METAB OLIC PANEL albumin 3.8 g/dL 3.6-5. 1 normal Not Available [employer] [facility] [address], [place], [address], 10/15/2022 05:56:44 10/14/20 22 10/15/2022 COMPR EHENS JEWEL METAB OLIC PANEL globulin 2.0 g/dL_ (calc ) 1.9-3. 7 normal Not Available [employer] [facility] [address], [place], [address], 10/15/2022 05:56:44 10/14/20 22 10/15/2022 COMPR EHENS JEWEL METAB OLIC PANEL albumin/glob ulin ratio 1.9 (calc ) 1.0-2. 5 normal Not Available [employer] [facility] [address], [place], [address], 10/15/2022 05:56:44 10/14/20 22 10/15/2022 COMPR EHENS JEWEL METAB OLIC PANEL bilirubin, total 0.4 mg/dL 0.2-1. 2 normal Not Available [employer] [facility] [address], [place], [address], 10/15/2022 05:56:44 10/14/20 22 10/15/2022 COMPR EHENS JEWEL METAB OLIC PANEL alkaline phosphatase 97 U/L 37-153 normal Not Available [facility] [address], [place], [address], 10/15/2022 05:56:44 10/14/20 22 10/15/2022 COMPR EHENS JEWEL METAB OLIC PANEL AST 17 U/L 10-35 normal Not Available [employer] [facility] [address], [place], [address], 10/15/2022 05:56:44 10/14/20 22 10/15/2022 COMPR EHENS JEWEL METAB OLIC PANEL ALT 9 U/L 6-29 normal Not Available [facility] [address], [place], [address], 10/15/2022 05:56:44 10/14/20 22 10/15/2022 HEMOG LOBIN [...] diabe louise for child bryant. Not Available [facility] [address], [place], [address], 10/15/2022 05:56:45 10/14/20 22 10/15/2022 CBC (INCL UDES DIFF/ PLT) white blood cell count 7.5 thous and/u L 3.8-10 .8 normal Not Available [facility] [address], [place], [address], 10/15/2022 05:56:46 10/14/20 22 10/15/2022 CBC (INCL UDES DIFF/ PLT) red blood cell count 3.80 bhargavi on/uL 3.80-5 .10 normal Not Available [facility] [address], [place], [address], 10/15/2022 05:56:46 10/14/20 22 10/15/2022 CBC (INCL UDES DIFF/ PLT) hemoglobin 10.4 g/dL 11.7-1 5.5 low Not Available [facility] [address], [place], [address], 10/15/2022 05:56:46 10/14/20 22 10/15/2022 CBC (INCL UDES DIFF/ PLT) hematocrit 33.0 % 35.0-4 5.0 low Not Available [facility] [address], [place], [address], 10/15/2022 05:56:46 10/14/20 22 10/15/2022 CBC (INCL UDES DIFF/ PLT) MCV 86.8 fL 80.0-1 00.0 normal Not Available [facility] [address], [place], [address], 10/15/2022 05:56:46 10/14/20 22 10/15/2022 CBC (INCL UDES DIFF/ PLT) MCH 27.4 pg 27.0-3 3.0 normal Not Available [facility] [address], [place], [address], 10/15/2022 05:56:46 10/14/20 22 10/15/2022 CBC (INCL UDES DIFF/ PLT) MCHC 31.5 g/dL 32.0-3 6.0 low Not Available [facility] [address], [place], [address], 10/15/2022 05:56:46 10/14/20 22 10/15/2022 CBC (INCL UDES DIFF/ PLT) RDW 12.5 % 11.0-1 5.0 normal Not Available [facility] [address], [place], [address], 10/15/2022 05:56:46 10/14/20 22 10/15/2022 CBC (INCL UDES DIFF/ PLT) platelet count 122 thous and/u L 140-40 0 low Not Available [facility] [place] [facility] [address], [place], [address], 10/15/2022 05:56:46 10/14/20 22 10/15/2022 CBC (INCL UDES DIFF/ PLT) MPV 10.9 fL 7.5-12 .5 normal Not Available [facility] [place] [facility] [address], [place], [address], 10/15/2022 05:56:46 10/14/20 22 10/15/2022 CBC (INCL UDES DIFF/ PLT) absolute neutrophils 4508 cells /uL 1500-7 800 normal Not Available [facility] [place] [facility] [address], [place], [address], 10/15/2022 05:56:46 10/14/20 22 10/15/2022 CBC (INCL UDES DIFF/ PLT) absolute lymphocytes 1680 cells /uL 850-39 00 normal Not Available [facility] [place] [facility] [address], [place], [address], 10/15/2022 05:56:46 10/14/20 22 10/15/2022 CBC (INCL UDES DIFF/ PLT) absolute monocytes 510 cells /uL 200-95 0 normal Not Available [facility] [place] [facility] [address], [place], [address], 10/15/2022 05:56:46 10/14/20 22 10/15/2022 CBC (INCL UDES DIFF/ PLT) absolute eosinophils 743 cells /uL 15-500 high Not Available [facility] [address], [place], [address], 10/15/2022 05:56:46 10/14/20 22 10/15/2022 CBC (INCL UDES DIFF/ PLT) absolute basophils 60 cells /uL 0-200 normal Not Available [facility] [address], [place], [address], 10/15/2022 05:56:46 10/14/20 22 10/15/2022 CBC (INCL UDES DIFF/ PLT) neutrophils 60.1 % normal Not Available [facility] [place] [facility] [address], [place], [address], 10/15/2022 05:56:46 10/14/20 22 10/15/2022 CBC (INCL UDES DIFF/ PLT) lymphocytes 22.4 % normal Not Available [facility] [address], [place], [address], 10/15/2022 05:56:46 10/14/20 22 10/15/2022 CBC (INCL UDES DIFF/ PLT) monocytes 6.8 % normal Not Available [facility] [place] [facility] [address], [place], [address], 10/15/2022 05:56:46 10/14/20 22 10/15/2022 CBC (INCL UDES DIFF/ PLT) eosinophils 9.9 % normal Not Available [facility] [address], [place], [address], 10/15/2022 05:56:46 10/14/20 22 10/15/2022 CBC (INCL UDES DIFF/ PLT) basophils 0.8 % normal Not Available [facility] [address], [place], [address], 10/15/2022 05:56:46 11/11/20 22 11/11/2022 CBC (H/H, RBC, INDIC ES, WBC, PLT) white blood cell count 5.2 thous and/u L 3.8-10 .8 normal Not Available [facility] [address], [place], [address], 11/11/2022 23:52:50 11/11/20 22 11/11/2022 CBC (H/H, RBC, INDIC ES, WBC, PLT) red blood cell count 3.84 bhargavi on/uL 3.80-5 .10 normal Not Available [facility] [address], [place], [address], 11/11/2022 23:52:50 11/11/20 22 11/11/2022 CBC (H/H, RBC, INDIC ES, WBC, PLT) hemoglobin 10.3 g/dL 11.7-1 5.5 low Not Available [facility] [address], [place], [address], 11/11/2022 23:52:50 11/11/20 22 11/11/2022 CBC (H/H, RBC, INDIC ES, WBC, PLT) hematocrit 32.1 % 35.0-4 5.0 low Not Available [facility] [address], [place], [address], 11/11/2022 23:52:50 11/11/20 22 11/11/2022 CBC (H/H, RBC, INDIC ES, WBC, PLT) MCV 83.6 fL 80.0-1 00.0 normal Not Available [facility] [address], [place], [address], 11/11/2022 23:52:50 11/11/20 22 11/11/2022 CBC (H/H, RBC, INDIC ES, WBC, PLT) MCH 26.8 pg 27.0-3 3.0 low Not Available [facility] [address], [place], [address], 11/11/2022 23:52:50 11/11/20 22 11/11/2022 CBC (H/H, RBC, INDIC ES, WBC, PLT) MCHC 32.1 g/dL 32.0-3 6.0 normal Not Available [facility] [address], [place], [address], 11/11/2022 23:52:50 11/11/20 22 11/11/2022 CBC (H/H, RBC, INDIC ES, WBC, PLT) RDW 12.4 % 11.0-1 5.0 normal Not Available [facility] [address], [place], [address], 11/11/2022 23:52:50 11/11/20 22 11/11/2022 CBC (H/H, RBC, INDIC ES, WBC, PLT) platelet count 138 thous and/u L 140-40 0 low Not Available [facility] [address], [place], [address], 11/11/2022 23:52:50 11/11/20 22 11/11/2022 CBC (H/H, RBC, INDIC ES, WBC, PLT) MPV 11.5 fL 7.5-12 .5 normal Not Available [facility] [address], [place], [address], 11/11/2022 23:52:50 05/22/20 23 05/22/2023 HbA1c (hemo globi n A1c), blood A1C 7.7 Not Available Not Availa ble 06/04/2023 17:08:30 Result Notes None recorded. 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 Procedures Surgical History Date Name Laterality Status Provider Name and Address Organization Details Recorded Time 12/22/19 23 diabetic retinal eye exam completed Courtney Mattson [facility], [facility] 06/11/2023 14:58:33 03/04/20 22 Quality Functional Assessment completed Albaro Blankenship [facility] 03/04/2022 08:24:04 03/04/20 22 Quality Medication Reviewed and Updated completed Albaro Blankenship [facility] 03/04/2022 08:24:04 03/04/20 22 Quality BMI with follow up completed Albaro Blankenship [facility] 03/04/2022 08:24:04 03/04/20 22 Quality Advanced Care Planning completed Albaro Blankenship [facility] 03/04/2022 08:24:04 03/04/20 22 Quality Incontinence Screening completed Albaro Blankenship [facility] 03/04/2022 08:24:04 03/04/20 22 Medicare AWV - Screening Schedule completed Shiraz Jaeger MD [address], [address], [facility] 03/04/2022 10:34:31 03/04/20 22 Quality Fall Risk Assessment completed Albaro Blankenship [facility] 03/04/2022 08:24:04 01/06/20 22 diabetic retinal eye exam completed Courtney Mattson [facility], [facility] 09/24/2022 18:55:43 02/16/20 17 screening colonoscopy completed Albaro Blankenship [facility] 03/04/2022 09:43:07 02/15/20 12 screening mammography completed Albaro Blankenship [facility] 03/04/2022 09:42:54 Imaging Results None recorded. Procedure Notes None recorded. Medical Equipment None Reported. Allergies Allergen ID Allergen Name Allergen Category Reaction Reaction Severity Criticality Documentation Date Start Date Code Code System Note Provider Name and Address Organization Details Recorded Time 355659 pioglitaz one medicatio n itching Not available Not available 11/17/2021 79579 RxNorm Emmanuel Hickman nikky [facility] 08:51:35 Medications Name Sig Start Date Stop [...] Available Not Available Nasonex 50 mcg/actuat ion Blackwater Blackwater 2 sprays every day by intranas al [...] INJECT 2 UNITS SUBCUTAN EOUSLY WITH BREAKFAS T, 4 UNITS AT LUNCH, 2 UNITS PRIOR TO DINNER DAILY active Not Available Not Available No t Available glipizide ER 10 mg 24 hr tablet,ext [...] Available Not Available Not Available Fluarix Quad 0457-7145 (PF) 60 mcg (15 mcg x 4)/0.5 [...] Available Not Available Not Available Fluad Quad 7866-6946( 65yr up)(PF) 60 mcg (15 mcg x 4)/0.5mL IM syringe INJECT 0.5ML INTRAMUS CULARLY ONCE 02/27 completed Not Available Not Available Not Available Vitals Date Recorded Systolic And Diastolic Provider Name and Address Organization Details Last Updated DateTime 03/04/2022 130/60 mm[Hg] Shiraz Jaeger MD [address] [address], [place], [address], [facility] 03/04/2022 10:16:31 Date Recorded Body height Body mass index (BMI) Body weight Body temperature Oxygen saturation Oxygen saturation in Arterial blood by Pulse oximetry Respiratory rate Heart rate Systolic And Diastolic Provider Name and Address Organization Details Last Updated DateTime 2 160.02 cm 25.2 kg/m2 35649.1 2 g 98.2 [degF] 99 % 99 % 17 /min 72 /min 138/82 mm[Hg] Albaro Blankenship [facility], [facility] 2 09:46:52 Date Recorded Body mass index (BMI) Body height Oxygen saturation Oxygen saturation in Arterial blood by Pulse oximetry Heart rate Body temperature Body weight Systolic And Diastolic Systolic And Diastolic Provider Name and Address Organization Details Last Updated DateTime 1 25.5 kg/m2 160.02 cm 96 % 96 % 84 /min 98.2 [degF] 48258.3 g 164/60 mm[Hg] 140/70 mm[Hg] Not Available [facility] 2 00:31:33 Date Recorded Body height Body mass index (BMI) Body weight Respiratory rate Body temperature Heart rate Oxygen saturation Oxygen saturation in Arterial blood by Pulse oximetry Systolic And Diastolic Provider Name and Address Organization Details Last Updated DateTime 2 160.02 cm 25.2 kg/m2 00900.1 2 g 14 /min 98.1 [degF] 73 /min 97 % 97 % 124/70 mm[Hg] Flavio Santiago [facility] 2 13:29:20 Date Recorded Body mass index (BMI) Body height Oxygen saturation Oxygen saturation in Arterial blood by Pulse oximetry Heart rate Body temperature Body weight Systolic And Diastolic Provider Name and Address Organization Details Last Updated DateTime 1 24.6 kg/m2 160.02 cm 97 % 97 % 78 /min 98.5 [degF] 90506.3 4 g 180/70 mm[Hg] Not Available [facility] 2 00:31:33 Social History Question Answer Notes LastModified by Organizat ion Details LastModified Time Tobacco Smoking Status Current Every Day Smoker RG [facility] - [facility], [facility] 11/26/2013 12:12:22 Do You Have An Advance Directive? Yes Information n ot available 09/25/2022 Is Blood Transfusion Acceptable In An Emergency? Yes Information not available 10/20/2022 In The 14 Days Before Symptom Onset, Have You Had Close Contact With A Laboratory-confirm ed COVID-19 While That Case Was Ill? No Information n ot available 09/25/2022 In The 14 Days Before Symptom Onset, Have You Had Close Contact With A Person Who Is Under Investigation For COVID-19 While That Person Was Ill? No Information not available 09/25/2022 Have You Been To An Area Known To Be High Risk For COVID-19? No Information not available 09/25/2022 What Type Of Diet Are You Following? REGULAR [email or web address] Information n ot available 03/04/2022 Alcohol Use Less Than 1 Per Month [email or web address] Information not available 11/26/2013 Do You Smoke? 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 10/20/2022 Information not available 10/20/2022 What Is Your Current Pack Years? [email or web address] years Information not available 09/25/2022 What Is Your Relationship Status? Information not available 10/20/2022 Do You Use Your Seat Belt Or Car Seat Routinely? Yes Information not available 09/25/2022 Are You Sexually Active? No Information not available 09/25/2022 How Much Tobacco Do You Smoke? 1 PPD [email or web address] Information not available 11/26/2013 Has Tobacco Cessation Counseling Been Provided? Yes Information not available 09/25/2022 On What Date Was Tobacco Cessation Counseling Provided? 10/20/2022 Information not available 10/20/2022 Sex: Female Functional Status Question Answer Note LastModified by Organizat ion Details LastModified Time Do you use any illicit or recreational drugs? No Information not available 09/25/2022 Do you or have you ever used any other forms of tobacco or nicotine? No Information not available 09/25/2022 What is your level of alcohol consumption? Occasional Information not available 09/25/2022 What is your exercise level? None Information [...] available 2021 08:51:40 Medical History Condition Response Diabetes Y High blood pressure Y Other Y Gynecological HistoryNo gynecological history recorded. Obstetrics History GPAL:G 0 P 0 0 0 0 Immunizations Vaccine Type Date Status Note Provider Nam e and Address Organization Details Recorded Time Influenza, high-dose, quadrivalent, PF 2 completed SHELDON Brooks [address] [facility] [address], [place], [address], [facility] - [facility], [facility] 10/20/2022 14:02:00 influenza, intradermal, quadrivalent, preservative free 0 completed Not Available [facility] 11/17/2021 01:26:27 zoster live 5 completed Not Available [facility] 11/17/2021 01:26:27 Influenza, split virus, quadrivalent, PF 0 completed Not Available [facility] 11/17/2021 01:26:27 Influenza, high-dose, trivalent, PF 9 completed Not Available [facility] 11/17/2021 01:26:28 Influenza, split virus, quadrivalent, PF 8 completed Not Available [facility] 11/17/2021 01:26:28 COVID-19, mRNA, LNP-S, PF, 100 mcg/0.5mL dose or 50 mcg/0.25mL dose 1 completed Not Available [facility] 11/17/2021 01:26:28 COVID-19, mRNA, LNP-S, PF, 100 mcg/0.5mL dose or 50 mcg/0.25mL dose 1 completed Not Available [facility] 11/17/2021 01:26:28 zoster live 5 completed Not Available [facility] 11/17/2021 01:26:28 Influenza, high-dose, quadrivalent, PF 1 completed Not Available [facility] 11/17/2021 01:26:28 pneumococcal polysaccharide PPV23 7 completed Not Available [facility] 11/17/2021 01:26:28 Influenza, high-dose, trivalent, PF 6 completed Not Available [facility] 11/17/2021 01:26:28 Pneumococcal conjugate PCV 13 5 completed Not Available [facility] 11/17/2021 01:26:28 Influenza, high-dose, trivalent, PF 5 completed Not Available [facility] 11/17/2021 01:26:28 COVID-19, mRNA, LNP-S, PF, 100 mcg/0.5mL dose or 50 mcg/0.25mL dose 1 completed Shiraz Jaeger MD [address], [address], [facility], [facility] 03/04/2022 10:00:59 SARS-COV-2 (COVID-19) vaccine, UNSPECIFIED 3 completed Emmanuel sher, [facility], [facility] 09/14/2023 09:52:25 influenza nasal, unspecified formulation 3 completed Flavio sher [facility], [facility] 10/06/2023 11:37:58 Past Encounters Encounter ID Performer Location Encounter Start Date Encounter Closed Date Diagnosis/Indication Diagnosis SNOMED-CT Code Diagnosis ICD10 Code Diagnosis Note [id number] [facility] [address] [place] [address] 11/26/2013 12:04:15 11/26/2013 12:45:08 Acute bronchitis 76807259 begin medication s as prescibed. Instructed to follow up if not improved. [id number] _ATHN_MIGR ATION_[address] [address] [place] [address] 08/31/2014 00:00:00 08/31/2014 11:12:48 [id number] _ATHN_MIGR ATION_[address] [address] [address] [place] [address] 09/24/2015 00:00:00 09/25/2015 11:19:15 [id number] _ATHN_MIGR ATION_[address] [address] [place] [address] 12/03/2015 00:00:00 12/03/2015 10:58:47 [id number] _ATHN_MIGR ATION_[address] [address] [address] [address] [facility] [place] [address] 12/17/2015 00:00:00 12/17/2015 13:34:24 [id number] _ATHN_MIGR ATION_[address] [address] [address] [place] [address] 03/07/2016 00:00:00 03/10/2016 08:32:14 [id number] _ATHN_MIGR ATION_[address] [address] [address] [address] [place] [address] 03/14/2016 00:00:00 03/17/2016 08:23:27 [id number] _ATHN_MIGR ATION_[address] [address] [address] [address] [place] [address] 03/24/2016 00:00:00 03/24/2016 16:55:19 [id number] _ATHN_MIGR ATION_[address] [address] [place] [address] 03/27/2016 00:00:00 03/27/2016 14:38:17 [id number] _ATHN_MIGR ATION_1 [facility] [address] [address] [place] [address] 04/03/2016 00:00:00 04/03/2016 10:11:27 [id number] _ATHN_MIGR ATION_1 [facility] [address] [address] [address] [place] [address] 05/01/2016 00:00:00 05/01/2016 12:13:11 [id number] _ATHN_MIGR ATION_1 [facility] [address] [address] [place] [address] 05/22/2016 00:00:00 05/23/2016 12:48:56 [id number] _ATHN_MIGR ATION_1 [facility] [address] [address] [place] [address] 08/27/2016 00:00:00 08/27/2016 13:26:02 [id number] _ATHN_MIGR ATION_1 [facility] [address] [address] [place] [address] 12/15/2016 00:00:00 12/15/2016 08:28:42 [id number] _ATHN_MIGR ATION_1 [facility] [address] [address] [address] [place] [address] 12/23/2016 00:00:00 12/23/2016 17:08:37 [id number] _ATHN_MIGR ATION_1 [facility] [address] [address] [address] [place] [address] 03/12/2017 00:00:00 03/12/2017 11:16:20 [id number] _ATHN_MIGR ATION_1 [facility] [address] [address] [address] [place] [address] 08/12/2017 00:00:00 08/12/2017 10:19:53 [id number] _ATHN_MIGR ATION_1 [facility] [address] [address] [address] [place] [address] 03/08/2018 00:00:00 03/08/2018 10:43:19 [id number] _ATHN_MIGR ATION_1 [facility] [address] [address] [address] [place] [address] 03/09/2018 00:00:00 03/09/2018 17:30:45 [id number] _ATHN_MIGR ATION_1 [facility] [address] [address] [address] [place] [address] 03/15/2018 00:00:00 03/15/2018 17:22:41 [id number] _ATHN_MIGR ATION_[id number] [address] [place] [address] 08/23/2018 00:00:00 08/26/2018 17:49:38 [id number] _ATHN_MIGR ATION_1 [facility] [address] [address] [address] [place] [address] 12/06/2018 00:00:00 12/10/2018 12:51:55 [id number] _ATHN_MIGR ATION_1 [facility] [address] [address] [address] [place] [address] 03/07/2019 00:00:00 03/08/2019 08:00:47 [id number] _ATHN_MIGR ATION_[id number] [address] [place] [address] 08/25/2019 00:00:00 08/27/2019 10:23:09 [id number] _ATHN_MIGR ATION_1 [facility] [address] [address] [address] [place] [address] 12/09/2019 00:00:00 12/12/2019 07:32:[id number] [facility] [address] [address] [place] [address] 03/09/2020 00:00:00 03/09/2020 10:31:[id number] [facility] [address] [address] [address] [place] [address] 08/29/2020 00:00:00 08/29/2020 11:15:04 [id number] _ATHN_MIGR ATION_1 [facility] [address] [address] [address] [place] [address] 12/13/2020 00:00:00 12/15/2020 11:08:39 [id number] _ATHN_MIGR ATION_1 [facility] [address] [address] [address] [place] [address] 12/19/2020 00:00:00 12/20/2020 14:59:41 [id number] _ATHN_MIGR ATION_1 [facility] [address] [address] [address] [place] [address] 12/27/2020 00:00:00 12/27/2020 10:22:[id number] [facility] [address] [address] [address] [place] [address] 02/27/2021 00:00:00 02/27/2021 11:09:[id number] [facility] [address] [address] [place] [address] 08/26/2021 00:00:00 08/26/2021 12:59:[id number] [facility] [address] [address] [address] [place] [address] 08/30/2021 00:00:00 08/30/2021 11:07:[id number] [facility] [address] [place] [address] 10/23/2021 00:00:00 10/23/2021 10:26:39 [id number] [facility] [place] [address] 10/25/2021 00:00:00 10/25/2021 19:45:[id number] [facility] [place] [address] 03/04/2022 09:12:17 03/04/2022 12:49:59 Adult health examination [id number] Z00.00 Annual Wellness Visit done today. Recent screening blood work with the patient. The patient defers a tetanus vaccinatio n remainder of her immunizati ons are up-to-date . The patient does not wish to have further mammogram, bone density testing, colonoscop y screening Increased body mass index 83093545 Z68.25 Elevated BMI 25-25.9. Dietary restrictio ns and better therapeuti c lifestyle discussed Diet education 37745743 Z71.3 see above Type 2 raymond betes mellitus 44898147 E11.40 Patient's recent fasting sugar was normal [...] units, 301-350 8units, 351-400 10 units) Hyperlipidemia 03113931 E78.5 The patient is tolerating atorvastat in without side effects her recent LDL cholestero l was below her goal of 70. The patient's liver enzymes are normal. The patient was advised to continue low-fat diet we will continue her current dose of atorvastat in and recheck her cholestero l in 6 months Anemia [id number] D64.9 The patient was started on iron for iron deficiency anemia. The patient does not wish to have a colonoscop y screening her recent CBC is almost normalized with the iron supplement ation we will repeat a CBC and iron levels prior to her next visit Essential hypertension [id number] I10 Lisinopril was increased to 40 mg [...] neuropathy due to type 2 diabetes mellitus [id number] 107 E11.42 The patient does have a history of peripheral neuropathy she is not having any pain and does not wish to take any additional medication at this time Chronic vertigo [id number] 9105 R42 The patient has a [...] too strong for her. Overactive urinary bladder [id number] N32.81 Patient has been having occasional urinary incontinen ce. We will check a urinalysis to rule out infection if there is no infection we will start her on oxybutynin after she finishes meclizine [id number] Shiraz Jaeger MD [facility] [address] [facility] [address] [facility] [place] [address] 10/20/2022 13:19:27 10/20/2022 14:01:10 Administration of influenza vaccine [id number] Z23 High-dose flu shot to be given today Hyperglyce shakeel due to type 2 diabetes mellitus [id number] E11.65 Chronic problem, greatly improved. Patient's A1c [...] microalbum in done 02/25/2022 was negative Hyperlipidemia 58104549 E78.5 Chronic problem, stable. Patient is on atorvastat in 40 mg daily with a goal LDL of less than 70. Current LDL is 60. Patient will continue on this medicine as her liver enzymes are normal and she is not having any myalgias. We will recheck her lipids in 6 months Anemia [id number] D64.9 Chronic problem, stable. Patient with known [...] will follow her blood count. Essential hypertension [id number] I10 Chronic problem, stable. Patient blood pressure is well controlled on lisinopril 40 mg daily. Her renal function is within normal limits. Electrolyt es are within normal limits. She denies any chest pain or shortness of breath. She will continue on this medicine. Peripheral neuropathy due to type 2 diabetes mellitus [id number] 107 E11.42 Chronic problem, stable. Patient's A1c did improve to 6.8%. The patient does have a history of peripheral neuropathy she is not having any pain and does not wish to take any additional medication at this time Thrombocyt openic disorder [id number] D69.6 New problem. Patient's platelet count was [...] None Recorded Advance Directives Directive Y: Payers Insurance Date Sequence Insurance Name Policy Number Policy Espino Covered Member ID Espino Member ID Guarantor Name 08/11/2023 3 [employer] [place] [facility] (MEDICARE REPLACEMENT/ ADVANTAGE - PPO) [id number] Hemant Bryant [id number] Annette Marcos 08/11/2023 2 [facility] (MEDICARE REPLACEMENT/ ADVANTAGE - PPO) [id number] Annette Davis Hemant [id number] Annette Davis Hemant 03/03/2022 1 [facility] OPTIONS - PLAN MY (MEDICARE SUPPLEMENT) Annette Davis Hemant [id number] Annette Davis Hemant 03/03/2022 1 [place] Annette Davis Hemant [id number] Annette Davis Hemant 06/02/2023 [facility] (MEDICARE REPLACEMENT/ ADVANTAGE - PPO) [id number] Annette Davis Hemant [id number] Annette Davis Hemant 08/11/2023 1 [facility] (MEDICARE REPLACEMENT/ ADVANTAGE - PPO) [id number] Annette Davis Hemant [id number] Annette Davis Hemant Notes Date Note Type Note Provider Name and Address Organization Details Recorded Time 03/04/2022 text/html CORONAVIRUS SCREENING TOOL Are you experiencing any NEW symptom(s) listed below that is not due to another health problem None of the below Is anyone else in your household experiencing any NEW symptoms No In the past 2 weeks did you have close contact (within 6 feet for at least 15 minutes) with someone with symptoms of COVID-19 or who tested positive for COVID-19 No In the past 2 weeks have you been tested for COVID-19 No, I have not been tested Why did you get tested? Please select all that apply N/A In the past 2 weeks has someone in your household tested positive for COVID-19 No Have you ever received a dose of COVID-19 vaccine? Yes Which vaccine product did you receive? Moderna Imported from [employer] on 03/04/2022 ANNUAL WELLNESS VISIT QUESTIONNAIRE Has the patient had any change or additions to their Medical Care Team since the last visit? i.e. pharmacy, medical suppliers, doctors No What is the Patient's living arrangements? Live with Spouse What type of residence does the Patient live in? Single Family Home How many stories (floors) to the Patient's residence? Single Story (1 floor) Does the Patient have smoke / CO detectors in the home? Yes Does the Patient use any of the following Respirator Machines? Nebulizer - No Oxygen - No CPAP/BiPAP - No Is the Patient able to afford his/her medications? Yes What type of transportation does the Patient use? I use my own car Has the Patient had a weight change in the past 6 months? No What type of diet the patient is currently following? Regular What best describes the Patient's level of Physical activity? None Does the Patient use Tobacco Products? Yes, every day but I am not ready to quit Has the Patient seen a Dentist in the last 12 months? No Does the Patient always use a seat belt routinely? Yes Does the Patient use sunscreen routinely? No Does the Patient wear a helmet when riding a bicycle/motorcycle? Do Not Ride Is the Patient sexually active? No How would the patient rate their health compared to others your age? Same How would the patient rate their health today compared to last year? Same Does the Patient have Pain? No Is the patient using narcotics/opioids for pain? No Is the patient taking or using any other harmful substances? No How much urinary incontinence does the Patient experience? None Does the Patient or people around the Patient have concerns about the Patient's hearing? Yes Does the Patient or people around the Patient have concerns about the Patient's vision? No Does the Patient use any of the following for mobility assistance? Cane - No Crutches - No Walker - No Wheelchair/Scooter - No In the past year has the Patient had concerns about balance or walking or feeling unsteady on his/her feet? No In the past year has the Patient had a fall? No STEADI Fall Risk Assessment I have fallen in the past year. - No I use or have been advised to use a cane or walker to get around safely. - No Sometimes I feel unsteady when I am walking. - No I steady myself by holding onto furniture when walking at home - No I am worried about falling. - No I need to push with my hands to stand up from a chair. - No I have some trouble stepping up onto a curb. - No I often have to fitzpatrick to the toilet. - No I have lost some feeling in my feet. - Yes I take medicine that sometimes makes me feel light-headed or more tired than usual - No I take medicine to help me sleep or improve my mood. - No I often feel sad or depressed. - No Does the Patient's home have any trip hazards like throw rugs or uneven floors? No Does the Patient need assistance with Bathing/Toileting/Ea ting Bathing/Grooming - No Toileting - No Eating - No Does the Patient or the people around the Patient have concerns about his/her memory? Yes Does the Patient have an Advance Directive (Living Will)? Yes Colonoscopy Date 12/21/2016 PHQ Score No or Minimal depression, (0). Imported from [facility] on 03/04/2022 CORONAVIRUS SCREENING TOOL Are you experiencing any NEW symptom(s) listed below that is not due to another health problem None of the below Is anyone else in your household experiencing any NEW symptoms No In the past 2 weeks did you have close contact (within 6 feet for at least 15 minutes) with someone with symptoms of COVID-19 or who tested positive for COVID-19 No In the past 2 weeks have you been tested for COVID-19 No, I have not been tested Why did you get tested? Please select all that apply N/A In the past 2 weeks has someone in your household tested positive for COVID-19 No Have you ever received a dose of COVID-19 vaccine? Yes Which vaccine product did you receive? Moderna Imported from [facility] [facility] on 03/04/2022 ANNUAL WELLNESS VISIT QUESTIONNAIRE Has the patient had any change or additions to their Medical Care Team since the last visit? i.e. pharmacy, medical suppliers, doctors No What is the Patient's living arrangements? Live with Spouse What type of residence does the Patient live in? Single Family Home How many stories (floors) to the Patient's residence? Single Story (1 floor) Does the Patient have smoke / CO detectors in the home? Yes Does the Patient use any of the following Respirator Machines? Nebulizer - No Oxygen - No CPAP/BiPAP - No Is the Patient able to afford his/her medications? Yes What type of transportation does the Patient use? I use my own car Has the Patient had a weight change in the past 6 months? No What type of diet the patient is currently following? Regular What best describes the Patient's level of Physical activity? None Does the Patient use Tobacco Products? Yes, every day but I am not ready to quit Has the Patient seen a Dentist in the last 12 months? No Does the Patient always use a seat belt routinely? Yes Does the Patient use sunscreen routinely? No Does the Patient wear a helmet when riding a bicycle/motorcycle? Do Not Ride Is the Patient sexually active? No How would the patient rate their health compared to others your age? Same How would the patient rate their health today compared to last year? Same Does the Patient have Pain? No Is the patient using narcotics/opioids for pain? No Is the patient taking or using any other harmful substances? No How much urinary incontinence does the Patient experience? None Does the Patient or people around the Patient have concerns about the Patient's hearing? Yes Does the Patient or people around the Patient have concerns about the Patient's vision? No Does the Patient use any of the following for mobility assistance? Cane - No Crutches - No Walker - No Wheelchair/Scooter - No In the past year has the Patient had concerns about balance or walking or feeling unsteady on his/her feet? No In the past year has the Patient had a fall? No STEADI Fall Risk Assessment I have fallen in the past year. - No I use or have been advised to use a cane or walker to get around safely. - No Sometimes I feel unsteady when I am walking. - No I steady myself by holding onto furniture when walking at home - No I am worried about falling. - No I need to push with my hands to stand up from a chair. - No I have some trouble stepping up onto a curb. - No I often have to fitzpatrick to the toilet. - No I have lost some feeling in my feet. - Yes I take medicine that sometimes makes me feel light-headed or more tired than usual - No I take medicine to help me sleep or improve my mood. - No I often feel sad or depressed. - No Does the Patient's home have any trip hazards like throw rugs or uneven floors? No Does the Patient need assistance with Bathing/Toileting/Ea ting Bathing/Grooming - No Toileting - No Eating - No Does the Patient or the people around the Patient have concerns about his/her memory? Yes Does the Patient have an Advance Directive (Living Will)? Yes Colonoscopy Date 12/21/2016 PHQ Score No or Minimal depression, (0). Imported from [employer] on 03/04/2022he is here for her annual Medicare wellness [...] as needed. The patient Shiraz Jaeger MD [address] [address], [place], [address], [facility], [facility] 03/04/2022 10:38:49 10/20/2022 text/html Patient is here [...] of her diabetic retinopathy exam. SHELDON Brooks [address] [facility] [address], [place], [address], [facility], [facility] 10/20/2022 14:02:19 OBGyn Episode No OBEpisode recorded.
== END 2025-05-31 15:30 | disposition home or self-care (01) ==
LOC: HO.HSMS 14:59
PROVIDERS: PCP Student in an Organized Health Care Education/Training Program; Visit Provider Psychiatry & Neurology Neurology
DX: G25.2 Other specified forms of tremor (principal)
CPT/HCPCS: 99214